=== PATIENT | female | born 1970 | race Caucasian/White ===

== ENCOUNTER 2025-05-09 06:42 | Inpatient (IN) ==
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
[2025-05-09] MEDS ORDERED: DEXAMETHASONE SOD INJ 4 MG/ML VIAL ONE (06:54)
[2025-05-09] MEDS ORDERED: ONDANSETRON INJ 2 MG/ML 2 ML VIAL ONE (06:54)
[2025-05-09] MEDS ORDERED: MIDAZOLAM HCL 1 MG/ML 2ML VIAL ONE (06:55)
[2025-05-09] MEDS ORDERED: LIDOCAINE 2% 2 ML VIAL/AMP(20MG/ML) INFIL ONE (07:00)
[2025-05-09] MEDS ORDERED: ROCURONIUM BROMIDE 10 MG/ML 5 ML VIAL IV ONE (07:00)
[2025-05-09] MEDS ORDERED: HEPARIN SOD (PORCINE) 1000 UNIT/ML ONE (07:04)
[2025-05-09] MEDS ORDERED: GLYCOPYRROLATE 0.2 MG/ML VIAL ONE ×2 (07:19→08:33)
--- NOTE | 2025-05-09 07:25 | History & Physical Bridge Note ---
Date of Service May 09, 2025 History & Physical Bridge Note I have examined the patient, reviewed the History & Physical and in the interval since the performance of the History & Physical I have noted the following changes of clinical significance: no changes noted
[2025-05-09] MEDS: SODIUM CHLORIDE 0.9% 1,000 ML IV SCH ×2 (07:44→15:50)
[2025-05-09] MEDS ORDERED: PROMETHAZINE HCL 6.25 MG in SODIUM CHLORIDE 0.9% 50 ML IV PRN (07:55)
[2025-05-09] MEDS ORDERED: ATROPINE SULFATE 0.1 MG/ML 10ML SYR IV PRN (07:55)
[2025-05-09] MEDS ORDERED: PHENYLEPHRINE 100MCG/ML 5ML SYR ONE (08:57)
[2025-05-09] MEDS ORDERED: PROTAMINE SULFATE 10 MG/ML 5 ML VIAL IV ONE (09:37)
[2025-05-09] MEDS: THROMBIN FOR SOLN 20000 UNIT KIT ONE (09:40)
[2025-05-09] MEDS: GELATIN SPONGE SZ 100 ONE (09:40)
[2025-05-09] MEDS ORDERED: PHENYLEPHRINE HCL 25 MG/250 ML NSS IV ONE (09:40)
[2025-05-09] MEDS ORDERED: ePHEDrine sulfate 50 MG/5 ML SYR ONE (09:40)
[2025-05-09] MEDS: VISIPAQUE IV PRN (09:41)
[2025-05-09] MEDS ORDERED: SUGAMMADEX SODIUM 200 MG/2 ML VIAL IV ONE (09:58)
[2025-05-09] MEDS: BUPIVACAINE/EPINEPHRINE 0.5% MPF 1:200,000 30 ML VIAL ONE (10:01)
[2025-05-09] MEDS: ceFAZolin 330 MG/ML 1 GM VIAL ONE (10:01)
--- NOTE | 2025-05-09 10:01 | Post Operative Brief Note ---
Immediate Post Op Note Date of Surgery May 09, 2025 Pre & Post Diagnosis Operation Date: 05/09/25 08:00 Pre-Op Diagnosis: Left Internal Carotid Artery Stenosis Post-Op Diagnosis: Left Internal Carotid Artery Stenosis I identified the patient and participated in the time-out.: Yes Procedure Operation Date: 05/09/25 08:00 Actual Procedures p Left transcarotid artery revascularization, ultrasound right common femoral vein(Left) - Ridge Gaming MD Surgeon Ridge Gaming MD Warehouse Order Puller MD Bess SolanoMinarchick,PAC Estimated Blood Loss 20 Findings Consistent with Post-Op Diagnosis Anesthesia Type General Complications none Disposition Accompanied Patient To Recovery: No Disposition: Recovery Room
[2025-05-09] MEDS: ARISTA ABSORBABLE HEMOSTAT 3GM TOP ONE (10:03)
--- NOTE | 2025-05-09 10:18 | Operative Report ---
Post Operative Report Pre & Post Diagnosis Operation Date: 05/09/25 08:00 Pre-Op Diagnosis: Left Internal Carotid Artery Stenosis Post-Op Diagnosis: Left Internal Carotid Artery Stenosis I identified the patient and participated in the time-out.: Yes Procedure Operation Date: 05/09/25 08:00 Actual Procedures p Left transcarotid artery revascularization, ultrasound right common femoral vein(Left) - Ridge Gaming MD Surgeon Ridge Gaming MD Tool Lapper Hand Ada Jones MD; OSKAR Lassiter Estimated Blood Loss 25 Findings See Below Left internal carotid artery had a focal area of high grade stenosis on diagnostic angiogram, improved after balloon angioplasty and stent placement. On completion angiogram, there were no areas of dissection or flow limiting stenosis identified. There was good wall apposition of the stent. Patient moving all extremities to command after waking up from anesthesia. Specimens None Anesthesia Type General Complications None Disposition Accompanied Patient To Recovery: Yes Indications 54 year old female with history of bilateral asymptomatic high grade internal carotid artery stenosis, with left side being more significant than the right. Given that the left side had slightly more significant stenosis, we offered her revascularization of the left side first. After discussion of risks and benefits, patient provided informed consent to the above mentioned procedure. Description of Procedure The patient was brought to the operating room, where lines were placed and general anesthesia was accomplished by anesthesia team. A shoulder roll was placed and the neck was rotated towards the right side of the patient. The left neck and bilateral groins were prepped and patient was draped in the usual sterile fashion. A timeout was performed identifying the correct patient by name, procedure, and location of procedure and all were in agreement. A 4cm transverse incision was made between the sternal and clavicular heads of the sternocleidomastoid muscle. The muscle heads were retracted to each side and the carotid sheath was identified. Using blunt dissection, the carotid sheath was opened and 3cm of common carotid artery (CCA) were isolated. Umbilical tape was placed around the proximal CCA under direct visualization. A 5-0 prolene U- stitch was pre-placed in the anterior wall of the CCA to facilitate hemostasis after removal of the arterial sheath at completion of the procedure. The patient was given 9,000 units of IV heparin. The contralateral (right) common femoral vein was accessed under ultrasound guidance using a micropuncture needle, and a wire and sheath were placed using modified Seldinger technique. The venous return sheath was advanced into the common femoral vein over the 0.035" wire. Blood was aspirated from the flow line and the sheath was flushed with heparinized saline.The sheath was secured to the patient's skin with a 2-0 silk stitch to maintain position in the vessel. We then turned our attention back to the neck. ACT was confirmed to be above 250 seconds prior to arterial access. A 4-Ethiopian non-stiffened micropuncture set was used to puncture the artery with a 21G needle through the pre-placed U-stitch while holding gentle traction on the umbilical tape to stabilize the CCA within the incision. We did go through the skin as a tunnel before puncturing the artery with the needle, as the artery was about 5.5cm deep in the neck. The micropuncture wire was advanced 3-4cm into the CCA and the 21G needle removed. A skin lina was made over the needle puncture site at the skin. The micropuncture sheath was advanced through the skin lina until it was 3cm into the CCA and the wire and dilator were removed. A cerebral angiogram was obtained after ensuring there were no air bubbles in the system. The J-tipped guidewire was inserted and we stopped short of the lesion in the common carotid artery. After micropuncture sheath removal, the transcarotid arterial sheath foot plate was removed and the sheath was advanced to the 2.5cm marker. Then, the 0.035" wire and dilator were removed. Arterial sheath position was assessed under fluoroscopy. An angiogram was obtained to confirm position. The arterial sheath was sutured to the patient at two sites. The Flow Controller was connected to the transcarotid arterial sheath, prepared by passively allowing arterial blood to backfill the line and then it was connected to the venous return sheath. The CCA was clamped proximally with a Blanka tourniquet to ensure active flow reversal. Heparinized saline was delivered into the venous flow line to confirm adequate flow reversal. A left carotid angiogram was obtained. A TCAR timeout was performed, heart rate was >70bpm and systolic BP was >140mmHg. Patient had been pretreated with glycopyrrolate and atropine was available. The lesion was crossed with an 0.014" guidewire and pre-dilation balloon angioplasty was performed with a 4.5x25mm [employer] rapid exchange balloon to 12 atmospheres for about 3 seconds. An 8- 6x30mm tapered ENROUTE transcarotid stent was placed. After allowing at least 2 minutes of continued flow reversal, a completion angiogram was performed showing appropriate stent position with good wall apposition. At TCAR case completion, antegrade flow was restored by releasing the tourniquet on the CCA and closing the stopcocks to the flow lines. The total clamp time was 12 minutes. The transcarotid arterial sheath was removed and the pre-placed suture was tied. 25mg of protamine were given. There was bleeding around the pre-placed stitch and we placed a single 6-0 Prolene stitch around it. The site was now hemostatic. A repeat ACT was obtained and was <150. The venous return sheath was removed and hemostasis achieved with manual compression. The neck incision was irrigated with antibiotic solution and was hemostatic before closure. 30cc of 0.25% marcaine with epinephrine were used for local anesthesia around skin edges. The platysma was approximated with 3-0 Vicryl running suture and the skin was closed with 4-0 running Vicryl suture and covered with Dermabond. The patient tolerated the procedure well and was extubated in the operating room. She was moving all four extremities to command prior to transfer to the recovery room. All counts were correct at the end of the procedure. Fluoroscopy time was 2.4 minutes, radiation dose was 27 mGy and 12cc of contrast were used. Dr. Gaming was present and participated in all critical parts of the procedure. I attest to the content of the Intraoperative Record and any orders documented therein. Any exceptions are noted below.
[2025-05-09] MEDS: HYDROmorphone INJ 2 MG/ML SYR/VIAL IV PRN (10:42)
--- NOTE | 2025-05-09 12:14 | Anesthesiology Progress Note ---
Date of Service May 09, 2025 Anesthesia Post Procedure Vital Signs Vital Signs: Temp Pulse Pulse Resp BP BP BP 05/09/25 11:40 75 14 124/61 136/62 05/09/25 11:30 36.7 C 72 12 141/45 H 137/45 L 05/09/25 11:20 79 13 111/48 L 107/62 05/09/25 11:10 79 13 111/48 L 107/62 05/09/25 11:00 71 15 115/45 L 118/48 L 05/09/25 10:50 80 19 109/57 L 122/47 L 05/09/25 10:40 98 H 23 125/55 L 144/59 H 05/09/25 10:33 36.5 C 98 H 19 126/54 L 141/75 H 05/09/25 07:14 36.4 C L 70 18 134/57 L 139/68 Pulse Ox O2 Del Method O2 Flow Rate 05/09/25 11:40 93 Nasal Cannula 2 05/09/25 11:30 96 Nasal Cannula 2 05/09/25 11:20 92 Oxymask 5 05/09/25 11:10 92 Oxymask 5 05/09/25 11:00 97 Oxymask 5 05/09/25 10:50 94 Oxymask 5 05/09/25 10:40 93 Oxymask 5 05/09/25 10:33 95 Oxymask 5 05/09/25 07:14 96 Room Air Pain Intensity Bilateral Leg: Pain Intensity: 2 Left Neck: Pain Intensity: 5 Left Leg: Pain Intensity: 9 Transfer of Care Handoff Completed per policy Notes Mental Status: alert / awake / arousable and participated in evaluation Nausea / Vomiting: adequately controlled Pain: adequately controlled Airway Patency, RR, SpO2: stable & adequate BP & HR: stable & adequate Hydration State: stable & adequate Anesthetic Complications: no major complications apparent and Pt Satisfied with anesthetic care
[2025-05-09] MEDS ORDERED: ALBUTEROL HFA 8 GM INHALER INH PRN (13:18)
[2025-05-09] MEDS ORDERED: VITAMIN B COMPLEX FOLIC ACID PO SCH (13:18)
[2025-05-09] MEDS ORDERED: FLUTICASONE PROPIONATE NA SPR 16 GM BTL PRN (13:18)
[2025-05-09] MEDS ORDERED: STAT IV Infusion **Titration per Protocol STA (13:18)
[2025-05-09] MEDS ORDERED: PHARMACY GLYCEMIC MGMT CONSULT PRN (13:18)
[2025-05-09] MEDS ORDERED: PHENYLEPHRINE/NSS 25 MG/250 ML BAG IV PRN (13:18)
[2025-05-09] MEDS ORDERED: NON-FORMULARY MEDICATION (Magnesium Glycinate 100 mg Tablet) PO SCH (13:18)
[2025-05-09] MEDS ORDERED: diphenhydrAMINE Capsule 25 MG CAP PO PRN (13:18)
[2025-05-09] MEDS ORDERED: NAPHAZOLIN/PHENIRAMIN OPH SOLN 15 ML BTL OP PRN (13:56)
[2025-05-09] MEDS ORDERED: BISMUTH SUBSALICYLATE 262 MG CHEW PO PRN (14:04)
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
--- NOTE | 2025-05-09 14:50 | Pharmacy Report ---
Pharmacy Glycemic Short Note 2 - Date of Service May 09, 2025 - Glycemic Short BSG Results (Last 24 hours): 05/09/25 05/09/25 05/09/25 06:59 10:35 12:44 POC Glucose 117 H 154 H 164 H OUTPATIENT ANTIDIABETIC REGIMEN: * Farxiga 10 mg daily, Dulatglutide, Metformin ER 1000 mg BID * A1c 6.1% 12/13/24 * New A1c ordered for tomorrow ASSESSMENT: * Patient admitted following left TCAR. BSGs 117-154-164 mg/dL. * Will give full weight stress 1 dose lantus x 1 now, additional dose up to 15 units tonight (stress 2) * Will begin Novolog with weight stress 2 parameters PLAN FOR INPATIENT GLYCEMIC CONTROL: * Hold outpatient oral diabetes medications * Basal insulin * Lantus 15 units SQ x1, 0-8-15 PM * Bolus insulin * NovoLog per scale ACHS or Q6hrs while NPO * Goal Range: Low 110 mg/dL - High 140 mg/dL * Correction Factor: 30 mg/dL/unit * Nutritional / Prandial insulin per carb ratio of 1 unit per 9 grams CHO consumed
[2025-05-09] MEDS: LANTUS PER UNIT CHARGE SC ONE ×2 (15:51→20:10)
[2025-05-09] MEDS: MAGNESIUM OXIDE 400 MG TAB PO SCH (15:51)
[2025-05-09] MEDS: PREGABALIN 150 MG CAP PO STA (15:51)
[2025-05-09] MEDS: ASCORBIC ACID 500 MG TAB PO SCH (15:54)
[2025-05-09] MEDS: THIAMINE HCL 100 MG TAB PO SCH (15:54)
[2025-05-09] MEDS: FERROUS SULFATE 325 MG TAB PO SCH (15:55)
[2025-05-09] MEDS: INSULIN ASPART PER UNIT CHARGE SC SCH (17:11)
[2025-05-09] MEDS: NICOTINE 21 MG/24 HR TDSY TD SCH (18:09)
[2025-05-09] MEDS: guaiFENesin 600 MG TABCR PO SCH (20:10)
[2025-05-09] MEDS: FAMOTIDINE 40 MG TABLET PO SCH (20:10)
[2025-05-09] MEDS: LURASIDONE HCL 20 MG TAB PO SCH (20:11)
[2025-05-09] MEDS: TICAGRELOR 90 MG TAB PO SCH (20:11)
[2025-05-09] MEDS: PRAZOSIN HCL 1 MG CAP PO SCH (20:11)
[2025-05-09] MEDS: lamoTRIgine 100 MG TAB PO SCH (20:11)
[2025-05-09] MEDS: SUCRALFATE 1 GM TAB PO SCH (20:11)
[2025-05-09] MEDS: PREGABALIN 150 MG CAP PO SCH (20:11)
[2025-05-09] MEDS ORDERED: MORINGA PO SCH (21:00)
--- NOTE | 2025-05-10 07:20 | Critical Care Progress Note ---
Date of Service May 10, 2025 Assessment & Plan (1) Obstructive sleep apnea: (2) Chronic bronchitis: (3) Tobacco abuse: (4) Stenosis of left internal carotid artery: (5) Neuropathy: (6) Lumbar radiculopathy: (7) PAD (peripheral artery disease): (8) Atrial fibrillation: (9) GERD (gastroesophageal reflux disease): (10) PTSD (post-traumatic stress disorder): (11) Diabetes mellitus, type 2: (12) Hypertension: Plan 54-year-old female admitted to the hospital for TCAR. Sent to ICU for further management Past medical history: Chronic sinusitis, RICKY, history of anal cancer s/p resection, no chemo or radiation, PTSD, anxiety, hypertension, diabetes, dyslipidemia, peripheral vascular disease 2D echo 04/13/2025: EF 55-60%, RV normal in size and function -- Carotid artery stenosis left side S/p left-sided TCAR on 05/09/[address] Gaming Monitor blood pressure Neurochecks as per protocol Monitor for any signs of bleeding Continue with Lipitor and Brilinta -- COPD with emphysema and bronchitis On Trelegy 200 at home Not in exacerbation Follows up with Dr. Saini PFT 08/22/2024 personally reviewed: No obstructive lung dysfunction, insignificant bronchodilator response, high-normal TLC, mild decrease in DLCO FVC 3.42 L 111%, FEV1 2.46 L 103%,-/FVC 72%, RV 125%, TLC 120%, RV/TLC 95%, DLCO 72% --History of peripheral vascular disease S/p multiple stents in the left leg --History of DVT On Xarelto -- RICKY On CPAP 12 cm H2O Continue with same in the hospital --GERD On Pepcid and pantoprazole --Lumbar radiculopathy with neuropathy Takes Lyrica on a regular basis at home -- Diabetes type 2 ICU hypoglycemia protocol --Prophylaxis VTE: Xarelto GI: Pepcid and pantoprazole Lines: Right radial, peripheral Diet: Cardiac Plan: In/out: -960, urine output 3210 No labs from today DC the arterial line Disposition as per vascular surgery Please note the above document was generated using voice recognition software. It may contain grammatical, syntax or spelling errors.Any formal questions or concerns about the content, text or information contained within the body of this dictation should be directly addressed to the provider for clarification. Admission and Anticipated Discharge Date Admission Date: May 09, 2025 Subjective Patient seen and examined at bedside. No acute distress, no adverse events overnight She does have cough and complains of thick sticky phlegm. Not taking any medications at home for it Systolic blood pressure was in the 140s heart rate in the low 60s at the time of examination Denies any dizziness, no lightheadedness Mild soreness still in the back of the throat. Was able to finish her breakfast without any issues No nausea or vomiting Review of Systems Review of Systems: All systems reviewed & are unremarkable except as noted in Subjective Physical Exam Physical Exam: Constitutional: No acute distress HEENT: EOMI, PERRLA, left-sided incision site clean with minimal surrounding hematoma Respiratory system: Decreased air entry bilaterally, no wheeze, no rhonchi, no crackles CVS: S1-S2 positive, no murmurs or gallops Abdomen: Soft, nontender, nondistended, positive bowel sounds x4 Extremities: +2 pulses bilaterally radialis/ dorsalis pedis, no cyanosis, no edema Neuro: Awake alert oriented x3, cranial nerves II to XII grossly intact Psych: Normal mood and affect G/U: No Sharma Skin: Right groin dressing clean Skin: no rashes, warm and dry Lymphatic: no cervical or axillary lymphadenopathy Results & Data Results & Data Vital Signs (Past 12 Hours) Vital Signs Temp Pulse Resp BP Pulse Ox FiO2 05/10/25 06:00 36.6 C 05/10/25 06:00 57 L 15 123/52 L 98 05/10/25 05:15 58 L 17 93 05/10/25 05:01 135/45 L 05/10/25 05:00 36.7 C 05/10/25 04:00 36.6 C 05/10/25 04:00 53 L 15 96 05/10/25 04:00 126/50 L 05/10/25 03:00 36.5 C 05/10/25 03:00 52 L 14 96 05/10/25 03:00 109/44 L 05/10/25 02:14 53 L 17 93 21 05/10/25 02:03 56 L 14 95 05/10/25 02:00 36.7 C 05/10/25 02:00 103/45 L 05/10/25 01:03 54 L 16 95 05/10/25 01:00 36.6 C 05/10/25 01:00 124/49 L 05/10/25 00:00 36.7 C 05/10/25 00:00 115/44 L 05/10/25 00:00 54 L 15 95 05/10/25 00:00 55 L 05/09/25 23:18 62 17 96 05/09/25 23:14 83 20 93 21 05/09/25 23:00 36.6 C 05/09/25 23:00 118/44 L 05/09/25 22:15 53 L 14 127/56 L 98 05/09/25 22:00 36.7 C 05/09/25 21:09 60 17 96 05/09/25 21:01 116/47 L 05/09/25 21:00 36.5 C 05/09/25 20:03 67 23 151/48 H 92 05/09/25 20:00 36.7 C Coding Level of Care Code 77069 SUB INP/OBS CARE MIN Diagnoses Obstructive sleep apnea G47.33 Chronic bronchitis J42 Tobacco abuse Z72.0 Stenosis of left internal carotid artery I65.22 Neuropathy G62.9 Lumbar radiculopathy M54.16 PAD (peripheral artery disease) I73.9 Atrial fibrillation I48.91 GERD (gastroesophageal reflux disease) K21.9 PTSD (post-traumatic stress disorder) F43.10 Diabetes mellitus, type 2 E11.9 Hypertension I10
[2025-05-10 07:40] LABS: Hemoglobin A1C 6.2 % (4.5-5.6)
[2025-05-10] MEDS: ASPIRIN 81 MG ECTAB PO SCH (08:11)
[2025-05-10] MEDS: CHOLECALCIFEROL 125 MCG (5,000 UNITS) TAB PO SCH (08:11)
[2025-05-10] MEDS: ATORVASTATIN 40 MG TAB PO SCH (08:11)
[2025-05-10] MEDS: OMEGA-3 (PURIFIED FISH OIL) 1 GM CAP PO SCH (08:12)
[2025-05-10] MEDS: FOLIC ACID 1 MG TAB PO SCH (08:13)
[2025-05-10] MEDS: SPIRONOLACTONE 25 MG TAB PO SCH (08:13)
[2025-05-10] MEDS: MULTIVITAMIN TAB PO SCH (08:13)
[2025-05-10] MEDS: UMECLIDINIUM/VILANTEROL 62.5/25MCG 7 PUFFS/INHALER INH SCH (08:15)
[2025-05-10] MEDS: FLUTICASONE FUROATE 200MCG 14 PUFFS/INHALER INH SCH (08:16)
[2025-05-10] MEDS: REMOVE NICODERM PATCH SCH (08:21)
[2025-05-10] MEDS: LANTUS PER UNIT CHARGE SC ONE (08:40)
[2025-05-10] MEDS ORDERED: BIOTIN KERATIN PO SCH (09:00)
[2025-05-10] MEDS ORDERED: VITAMIN E PO SCH (09:00)
[2025-05-10] MEDS ORDERED: GINSENG 500 MG PO SCH (09:00)
[2025-05-10] MEDS ORDERED: NON-FORMULARY MEDICATION (Lutein 1 CAP) PO SCH (09:00)
[2025-05-10] MEDS ORDERED: NON-FORMULARY MEDICATION (Fluticasone-Umeclidin-Vilanter [Trelegy Ellipta] 200-62.5-25 mcg INH SCH (09:00)
[2025-05-10] MEDS ORDERED: [UNRECOGNIZED DRUG - OTHER] PO SCH (09:00)
[2025-05-10] MEDS ORDERED: GLUTAMINE 500 MG PO SCH (09:00)
[2025-05-10] MEDS ORDERED: ACTIVATED CHARCOAL PO SCH (09:00)
[2025-05-10 09:55] VITALS: O2SAT 95
[2025-05-10 11:43] VITALS: RESP 18
[2025-05-10 11:44] VITALS: TEMP 98.2
--- NOTE | 2025-05-10 13:28 | Surgery Progress Note ---
Date of Service May 10, 2025 Assessment & Plan (1) Stenosis of left internal carotid artery: Plan: Doing well Will get her out of bed and if she can void, she can be d\c'd today Admission and Anticipated Discharge Date Admission Date: May 09, 2025 Subjective Patient has not been out of bed. She denies any focal deficits. Does have mild incisional discomfort. She has not voided since ragland removed. Physical Exam Constitutional: WD/WN, vitals as above Neck: trachea midline Respiratory: normal respiratory effort; no respiratory distress Cardiovascular: Rate/Rhythm: regular rate and regular rhythm Skin: + incision Neurologic: CN's II-XI intact bilaterally, normal sensation to monofilament and moves all extremities Psychiatric: A+Ox3, euthymic affect Results & Data Vital Signs (Past 12 Hours) Vital Signs Temp Pulse Resp BP Pulse Ox O2 Del Method FiO2 05/10/25 11:43 36.8 C Room Air 05/10/25 11:06 71 18 95 05/10/25 11:00 129/48 L 05/10/25 11:00 129/48 L 05/10/25 10:24 63 16 96 05/10/25 10:06 74 17 96 05/10/25 10:00 126/44 L 05/10/25 09:54 69 16 95 05/10/25 09:03 58 L 19 95 05/10/25 09:00 125/47 L 05/10/25 09:00 125/47 L 05/10/25 08:53 36.4 C L 05/10/25 08:51 66 23 96 05/10/25 08:00 62 23 93 05/10/25 08:00 119/48 L 05/10/25 08:00 119/48 L 05/10/25 08:00 119/48 L 05/10/25 08:00 119/48 L 94 05/10/25 08:00 Room Air 05/10/25 08:00 59 L 05/10/25 07:00 59 L 15 93 05/10/25 07:00 122/54 L 05/10/25 06:00 36.6 C 05/10/25 06:00 57 L 15 123/52 L 98 05/10/25 05:15 58 L 17 93 05/10/25 05:01 135/45 L 08/07/25 05:00 36.7 C 05/10/25 04:00 36.6 C 05/10/25 04:00 53 L 15 96 05/10/25 04:00 126/50 L 05/10/25 03:00 36.5 C 05/10/25 03:00 52 L 14 96 05/10/25 03:00 109/44 L 05/10/25 02:14 53 L 17 93 21 05/10/25 02:03 56 L 14 95 05/10/25 02:00 36.7 C 05/10/25 02:00 103/45 L
--- NOTE | 2025-05-10 13:34 | Discharge Summary ---
Date of Service May 10, 2025 Admission HPI Per Admitting Provider Ms. Nunez is a middle-aged female presents to the vascular surgery clinic as a new patient in consultation for carotid disease. Patient is a very poor historian, and has severe flight of ideas which limits our ability to obtain an accurate HPI. Patient denies amaurosis, unilateral extremity weakness numbness or tingling, difficulty speaking or swallowing, facial droop, sudden onset of confusion. She does state that she was told she had a stroke in the past, but is unsure when this occurred. 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 She does have significant neuropathy in all 4 extremities, and has some tingling in her extremities most the time. She denies headache presently, fever recently, chest pain, shortness of breath at rest, abdominal pain, nausea, vomiting, rest pain, claudication, nonhealing wounds or ulcers, other complaints. She does have a history of undergoing stenting in her lower extremity arteries by Dr. Ayala in the past, bu t denies any new problems related to that presently. Admission Exam Per Admitting Provider Constitutional: In general patient is a healthy-appearing well-nourished well developed middle-aged female in no distress. She appears older than stated age. She is alert and oriented x 3 without any focal deficits. Her head is no rmocephalic and atraumatic. Her carotids do not demonstrate a bruit. Her heart is irregular. Her lungs are decreased significantly with sparse expiratory wheezing but clear otherwise. Her abdomen is soft nontender with normoactive bowel sounds in 4 r quadrants. Brachial and radial pulses are +2 in the left 3 on the right. Femoral pulses are +2 in the right +3 in the left. Distal pulses are +1. She has brisk capillary fill and no sign of distal ischemia. She has trace to 1+ edema. Principal Diagnosis left internal carotid artery stenosis Discharge Exam Constitutional: In general patient is a healthy-appearing well-nourished well developed middle-aged female in no distress. She appears older than stated age. She is alert and oriented x 3 without any focal deficits. Her head is normocephalic and atraumatic. Her carotids do not demonstrate a bruit. Her heart is irregular. Her lungs are decreased significantly with sparse expiratory wheezing but clear otherwise. Her abdomen is soft nontender with normoactive bowel sounds in 4 r quadrants. Brachial and radial pulses are +2 in the left 3 on the right. Femoral pulses are +2 in the right +3 in the left. Distal pulses are +1. She has brisk capillary fill and no sign of distal ischemia. She has trace to 1+ edema. Constitutional WD/WN, vitals as above Neck trachea midline Respiratory normal respiratory effort; no respiratory distress Cardiovascular Rate/Rhythm: regular rate and regular rhythm Skin + incision Neurologic CN's II-XI intact bilaterally, normal sensation to monofilament and moves all extremities Psychiatric A+Ox3, euthymic affect Discharge Data Allergies Allergy/AdvReac Type Severity Reaction Status Date / Time fluconazole [From Diflucan] Allergy Severe Anaphylaxis Verified 05/09/25 07:01 aripiprazole [From Abilify] AdvReac Intermediate Hyperglycem Verified 05/09/25 07:01 ia codeine AdvReac Intermediate "It made Verified 05/09/25 07:01 me feel weird" lithium AdvReac Intermediate Kidney Verified 05/09/25 07:01 Problems tramadol AdvReac Intermediate Vomiting Verified 05/09/25 07:01 trazodone AdvReac Intermediate Restless Verified 05/09/25 07:01 legs ziprasidone [From Geodon] AdvReac Intermediate Hypertensio Verified 05/09/25 07:01 n rosuvastatin [From Crestor] AdvReac Unknown Unknown Verified 05/09/25 07:01 Consultations 05/09/25 13:18 Consult Wine Bottle Inspector Routine Procedures Performed Operation Date: 05/09/25 08:00 Actual Procedures p Left transcarotid artery revascularization, ultrasound right common femoral vein(Left) - Ridge Gaming MD Ordered Studies 05/09/25 07:13 EV angio carotid cerv LT Routine US EV guide vascular access Routine Hospital Course (1) Stenosis of left internal carotid artery: Doing well Will get her out of bed and if she can void, she can be d\\c'd today Total Time Total Time Spent Total Time Spent (In Minutes): x Discharge Plan Discharge Items Patient Disposition: Home - Self-Care Reason For Visit: Left Internal Carotid Artery Stenosis Discharge Diagnosis: Left internal carotid artery stenosis Activity: Per Instructions section Non-emergency contact: Surgeon Call non-emergency contact if: your temperature is above 101.5, your wound has increased redness, your wound has increased drainage and your wound pain has increased Follow-up/Referrals: Maci Arias PA-C [Primary Care Provider] - Diet: Carb Consistent or DM2 and Heart Healthy Addtl Attending Provider Instructions: SPECIAL CARE INSTRUCTIONS: Diet: * You may return to previous diet. Medications: * Continue to take Aspirin, brilinta and statin as directed. Incision Care: * You may shower, but do not rub incision. You may let the warm soapy water run over it. Be sure to dry the incision well after bathing. * Do not shave directly over the incision until it is healed. * DO NOT IMMERSE THE INCISION IN A TUB/POOL/etc. UNTIL HEALED. Restrictions: * Do not drive for at least one week or if you are still taking any narcotic pain medication. * Do not lift anything heavier than a gallon of milk for one week after going home. Possible Complications: * Numbness - It is normal to have some numbness around the incision. Numbness can extend beyond the incision to areas of the neck, ear and face. The numbness is due to bruising of nerves during the surgery and will gradually improve over a period of months. * Hoarseness/Difficulty Speaking and Swallowing - The bruising of nerves in the neck can also cause a hoarse voice, difficulty speaking or swallowing. This may improve over time, HOWEVER, if it continues for more than a few days please contact our office ([phone]). * Excessive Swelling - There will be some swelling immediately after surgery which usually resolves within one week. If you notice that the swelling is getting worse, notify your surgeon ([phone]). * Drainage/Bleeding - If there is any drainage or bleeding, it should be a very small amount (less than a teaspoon per day). If you have excessive bleeding or drainage from the incision, call your surgeon ([phone]) right away. ACTIVATION OF EMERGENCY MEDICAL SYSTEM: Call 911, immediately, if you experience any of the following: Warning Signs and Symptoms of Stroke: * Sudden numbness or weakness of the face, arm or leg, especially on one side of the body * Sudden confusion, trouble speaking or understanding * Sudden trouble seeing in one or both eyes * Sudden trouble walking, dizziness, loss of balance or coordination * Sudden severe headache with no cause Do not delay calling 911 if you experience any warning signs or symptoms of a stroke. Delay in seeking medical attention may affect what treatments can be given to you. Risk Factors for Stroke: You can reduce your chances of stroke by working with your medical provider to adopt a healthy lifestyle. Some specific ways to lower your chance of stroke are: * If you are a smoker, now is the time to stop smoking cigarettes * If you are diabetic, improve the control of your blood sugars * Avoid excessive amounts of alcohol * Control high blood pressure * Lose weight if you are overweight * Be sure to lead an active lifestyle * Eat a healthy diet low in salt, cholesterol and fat You should know about other risk factors for stroke that you are unable to control. These include: * Age 55 years or older * Male gender * Certain racial groups: , or / * Family History of Stroke, Mini stroke or Heart Attack * Sickle Cell Disease You will be receiving a call from the Vascular Surgery Nurse after you are discharged. FOLLOW UP VISIT: It is important for you to keep your follow up appointments with your medical provider. Keep any scheduled doctor appointments. Call [phone] to schedule a follow up appointment if one not already scheduled. Pending Studies at Discharge: No Stand-Alone Forms: [facility], Smoking Cessation Medications and DC Order Prescriptions: New oxycodone-acetaminophen [Percocet] 5-325 mg tablet 1 tab PO Q8H PRN (Reason: pain) Qty: 10 0RF Continued metformin 500 mg tablet extended release 24 hr 1,000 mg PO BID Qty: 120 5RF (DME) lancets [OneTouch Delica Lancets] 33 gauge misc See Dose Instructions .ROUTE .MEDSUPPLY Qty: 100 Rx Instructions: As directed (DME) OneTouch Ultra Blue Test Strip strip See Dose Instructions .ROUTE .MEDSUPPLY Qty: 10 Rx Instructions: Test blood sugars 3 times a day Farxiga 10 mg tablet 10 mg PO QAM Trelegy Ellipta 200-62.5-25 mcg blister with device 1 inh inhalation QAM prazosin 2 mg capsule 2 mg PO HS atorvastatin 40 mg tablet 40 mg PO QAM Opcon-A 0.30390-1.315 % drops 1 drp ophthalmic (eye) QID PRN (Reason: Dry Eye(S)) (DME) blood-glucose meter [OneTouch Verio Flex meter] Misc See Rx Instructions .Route Qty: 1 0RF Rx Instructions: Check blood glucose 3x daily (DME) OneTouch Verio test strips Strip See Rx Instructions .Route Qty: 100 11RF Rx Instructions: Check blood glucose 3x daily (DME) lancets [Comfort EZ Lancets] 28 gauge misc See Rx Instructions .Route Qty: 100 11RF Rx Instructions: check blood glucose 3x daily Trulicity 1.5 mg/0.5 mL pen injector 1.5 mg subcut Q7D Qty: 2 5RF Patient Comments: no regular day, it's whenever she remembers to take it L-Glutamine 500 mg capsule 500 mg PO DAILY multivitamin [Daily Multi-Vitamin] Tablet 1 tab PO DAILY lysine [L-Lysine] 500 mg tablet 500 mg PO DAILY zinc gluconate 50 mg tablet 50 mg PO DAILY coenzyme Q10 100 mg capsule 100 mg PO DAILY krill [id number] 150-450 mg capsule,delayed release(DR/EC) 1 cap PO DAILY ferrous sulfate 325 mg (65 mg iron) tablet 325 mg PO DIRECTED Rx Instructions: every other day sucralfate [Carafate] 1 gram tablet 1 g PO BID magnesium 250 mg tablet 400 mg PO DIRECTED Rx Instructions: every 3 days vitamin B complex-folic acid 400 mcg tablet extended release 1 tab PO DIRECTED Rx Instructions: every 3 days thiamine HCl (vitamin B1) 250 mg tablet 250 mg PO DIRECTED Rx Instructions: every 3 days lisinopril 10 mg tablet 10 mg PO QAM bismuth subsalicylate [Pepto-Bismol] 1 applic PO DAILY PRN (Reason: Upset Stomach) cholecalciferol (vitamin D3) [Vitamin D3] 125 mcg (5,000 unit) Tablet 125 mcg PO DAILY albuterol sulfate [Ventolin HFA] 90 mcg/actuation Hfa Aerosol Inhaler 2 puff INHALATION Q6H PRN (Reason: Shortness Of Breath) magnesium glycinate 100 mg Tablet 240 mg PO DIRECTED Rx Instructions: every 3 days Biotin Plus Keratin 10,000-100 mcg-mg Tablet 1 tab PO DAILY activated charcoal 525 mg PO DAILY folic acid 1 cap PO DAILY Vitamin C 2,000 mg Tablet Extended Release 2,000 mg PO DIRECTED Rx Instructions: every other day ginseng 500 mg Tablet 500 mg PO DAILY famotidine 40 mg Tablet 40 mg PO HS pantoprazole 20 mg Tablet,Delayed Release (Dr/Ec) 20 mg PO QAM lurasidone [Latuda] 40 mg Tablet 40 mg PO HS Rx Instructions: must administer with food (at least 350 calories) [place] 2 tab PO BID lutein 1 cap PO DAILY vitamin E 1 cap PO DAILY aspirin 81 mg tablet,delayed release (DR/EC) 81 mg PO QAM spironolactone 25 mg tablet 25 mg PO QAM Xarelto 20 mg tablet 20 mg PO HS Rx Instructions: must administer with evening meal diphenhydramine HCl [Benadryl] 25 mg Capsule 25 mg PO TID PRN (Reason: allergies and/or sleep) ticagrelor [Brilinta] 90 mg Tablet 90 mg PO BID lamotrigine [Lamictal] 200 mg tablet 200 mg PO BID fluticasone propionate [Flonase Allergy Relief] 50 mcg/actuation spray,suspension 1 spray intranasal BID PRN (Reason: allergies) Rx Instructions: administer into each nostril pregabalin [Lyrica] 150 mg capsule 150 mg PO BID Discharge Orders: Discharge Order (Routine); Ordered 05/10/25 Ordered By: Ridge Gaming Admission Data Admit Date/Time: 05/09/25 07:28 Attending Provider: Ridge Gaming Admit Provider: Ridge Gaming Primary Care Provider: Maci Arias Other Providers: Edd Segundo; Rafael Saini; Donte Martines; Fidel Hernandez ueet; Bobby Colon; Gemini Mcknight; Cedric Salazar; Aydee Vieyra
[2025-05-10] MEDS: TAMSULOSIN HCL 0.4 MG CAP PO ONE (14:11)
[2025-05-10] MEDS ORDERED: GLUCAGON FOR INJ 1 MG VIAL SQ PRN (15:00)
[2025-05-10] MEDS ORDERED: DEXTROSE 50% 50 ML SYRINGE IV PRN (15:00)
[2025-05-10] MEDS ORDERED: GLUCOSE 10 TAB/TUBE PO PRN (15:00)
[2025-05-10] MEDS ORDERED: GLUCOSE 40% GEL 15 GM TUBE PO PRN (15:00)
[2025-05-10] MEDS ORDERED: CARBOHYDRATES FOR HYPOGLYCEMIA PO PRN (15:00)
[2025-05-10 15:56] VITALS: BP 109/41; PULSE 66
[2025-05-10] MEDS ORDERED: RIVAROXABAN 20 MG TAB PO SCH (21:00)
[2025-05-11] MEDS ORDERED: TAMSULOSIN HCL 0.4 MG CAP PO SCH (09:00)
== END 2025-05-10 16:45 | disposition home or self-care (01) | DRG 36 ==
LOC: ASU 06:42 → 1E 07:28
PROC: EV.TCAR (2025-05-09 08:00)

== ENCOUNTER 2025-07-25 06:19 | Inpatient (IN) ==
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
[2025-07-25 06:45] LABS: Hematocrit (blood only) 33.8 % (37.0-47.0); Hemoglobin 10.7 g/dl (12.0-16.0); Immature Granulocytes # (auto) 0.03 K/uL (0.01-0.20); Immature Granulocytes % (auto) 0.5 %; Mean Corpuscular Hemoglobin 26.8 pg (25.0-34.0); Mean Corpuscular Volume 84.5 fL (80.0-100.0); Platelet Count 229 K/uL (130-400); RDW Standard Deviation 42.1 fL (36.4-46.3); Red Blood Count 4.00 M/uL (4.20-5.40); White Blood Count 6.44 K/ul (4.8-10.8)
[2025-07-25] MEDS ORDERED: NALOXONE HCL 0.4 MG/1 ML VIAL/CARP IV PRN (07:01)
[2025-07-25] MEDS ORDERED: PROMETHAZINE HCL 6.25 MG in SODIUM CHLORIDE 0.9% 50 ML IV PRN (07:01)
[2025-07-25] MEDS ORDERED: ONDANSETRON INJ 2 MG/ML 2 ML VIAL IV PRN ×2 (07:01→11:14)
[2025-07-25] MEDS ORDERED: ATROPINE SULFATE 0.1 MG/ML 10ML SYR IV PRN (07:01)
[2025-07-25] MEDS ORDERED: FLUMAZENIL 0.1 MG/1 ML 10 ML VIAL IV PRN (07:01)
[2025-07-25 07:04] LABS: Anion Gap 6.0 (3-11); Blood Urea Nitrogen 20.0 mg/dl (6-23); Calcium 10.2 mg/dl (8.6-10.3); Carbon Dioxide 28.0 mmol/L (21-32); Chloride 105.0 mmol/L (98-107); Creatinine Clr Calc Pharmacy 53.0 ml/min; Glucose 165.0 mg/dl (70-99(Fasting)); Potassium 4.8 mmol/L (3.5-5.1); Sodium 139.0 mmol/L (136-145)
[2025-07-25] MEDS: SODIUM CHLORIDE 0.9% 1,000 ML IV SCH ×2 (07:04→12:19)
[2025-07-25 07:12] LABS: INR 1.0 (0.9-1.1); Partial Thromboplastin Time 25 Seconds (21-31); Prothrombin Time 10.3 Seconds (9.0-12.0)
[2025-07-25] MEDS ORDERED: PROPOFOL IV EMULSION 10 MG/ML 20 ML VIAL IV ONE (07:14)
[2025-07-25] MEDS ORDERED: ETOMIDATE 2 MG/ML 20 ML VIAL IV ONE (07:15)
[2025-07-25] MEDS ORDERED: GLYCOPYRROLATE 0.2 MG/ML VIAL ONE ×2 (07:19)
[2025-07-25] MEDS ORDERED: CISATRACURIUM BESYLATE IV SOLN 2 MG/ML 10 ML VIAL IV ONE (07:20)
[2025-07-25] MEDS ORDERED: NEOSTIGMINE METHYLSULFATE 1 MG/ML 10ML VIAL ONE (07:20)
[2025-07-25] MEDS ORDERED: MIDAZOLAM HCL 1 MG/ML 2ML VIAL ONE (07:22)
[2025-07-25] MEDS ORDERED: PHENYLEPHRINE HCL 10 MG/ML VIAL ONE (07:28)
[2025-07-25] MEDS: ALBUTEROL 0.083% NEBU SOLN 3 ML VIAL NEB STA (07:31)
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
[2025-07-25] MEDS ORDERED: NITROGLYCERIN/D5W 100 MCG/ML BTL ONE ×2 (07:44→09:19)
[2025-07-25] MEDS ORDERED: HEPARIN SOD (PORCINE) 1000 UNIT/ML ONE (07:48)
--- NOTE | 2025-07-25 08:22 | XRay Report ---
EXAM: XR chest 2V PA/lateral CLINICAL HISTORY: Pre op. TECHNIQUE: X-ray images of the chest were obtained in posteroanterior (PA) and lateral projections. COMPARISON: 10/09/2022 was reviewed. FINDINGS: Pulmonary Parenchyma: The lungs are clear bilaterally. There is no evidence of consolidation, collapse, or focal opacities. No pulmonary nodules are identified. There is no evidence of pleural effusion or pleural thickening. Heart and Mediastinum: The heart size and shape are normal. There is no mediastinal widening or masses. No hilar or mediastinal lymphadenopathy is identified. Bony Thorax: The bony thorax appears intact, without fractures or deformities. Soft Tissues: The soft tissues overlying the chest wall are unremarkable. IMPRESSION: Normal chest X-ray. No acute cardiopulmonary abnormalities are identified. Electronically signed by Smooth Hernandez 07-25-2025 08:21 AM
[2025-07-25] MEDS ORDERED: VASOPRESSIN 20 UNIT/ML VIAL ONE (08:48)
[2025-07-25] MEDS ORDERED: ePHEDrine sulfate 50 MG/5 ML SYR ONE (08:54)
[2025-07-25] MEDS ORDERED: PHENYLEPHRINE 100MCG/ML 5ML SYR ONE (08:54)
[2025-07-25] MEDS ORDERED: PROTAMINE SULFATE 10 MG/ML 5 ML VIAL IV ONE (09:11)
[2025-07-25] MEDS: GELATIN SPONGE SZ 100 ONE (09:27)
[2025-07-25] MEDS: BUPIVACAINE/EPINEPHRINE 0.5% MPF 1:200,000 30 ML VIAL ONE (09:27)
[2025-07-25] MEDS: ceFAZolin 330 MG/ML 1 GM VIAL ONE (09:27)
[2025-07-25] MEDS: THROMBIN FOR SOLN 20000 UNIT KIT ONE (09:28)
[2025-07-25] MEDS: SURGICEL ABSORB HEMOSTAT 2IN X 14IN TOP ONE (09:28)
--- NOTE | 2025-07-25 09:32 | Procedure Note ---
Angiogram Post Procedure Fluoroscopy Time (minutes): 3.9 Radiation (mGy): 87 Contrast: 24 Post Operative Report Pre & Post Diagnosis Operation Date: 07/25/25 08:00 Pre-Op Diagnosis: Right Internal Carotid Artery Stenosis Post-Op Diagnosis: Right Internal Carotid Artery Stenosis I identified the patient and participated in the time-out.: Yes Procedure Operation Date: 07/25/25 08:00 Actual Procedures p Right Transcarotid Artery Revascularization, Ultrasound Left Common Femoral Vein(Right) - Ridge Gaming MD Surgeon Ridge Gaming MD Back Strip Machine Operator Ruma,PAC Estimated Blood Loss 10 Findings Consistent with Post-Op Diagnosis Specimens none Anesthesia Type General Complications none Disposition Accompanied Patient To Recovery: No Disposition: Recovery Room Indications This 55-year-old female was found to have severe bilateral internal carotid stenosis. She underwent a left TCAR approximately 2 months prior to this follow-up difficulty. She is now admitted for a right TCAR. I have discussed the risks options and benefits of the procedure with the patient. The patient understands the risks options and benefits and agrees to the procedure. Description of Procedure The patient was taken to the operating room and placed in supine position. After general anesthesia was accomplished the groins and right side of the neck and chest were prepped and draped in a sterile manner. Timeout was performed and the patient was identified. A transverse incision was made just above the clavicle between the heads of the sternocleidomastoid. This was carried down to where the common carotid artery was identified. It was isolated and slung with an umbilical tape. It was given 8000units of heparin at that time. Ultrasound was then used to localize the left common femoral vein. The vein was patent and compressed easily. Under ultrasound guidance the right common femoral vein was punctured and the venous sheath was inserted. This was aspirated and flushed with heparinized saline. An ACT at that time was 341. Using micropuncture te chnique the common carotid artery was punctured using a tunneling technique. The micro sheath was inserted to 3 cm. Injection was then done showing the bifurcation. There was a significant lesion seen at the origin of the internal carotid artery on the right side. We reinserted the micro wire and passed it into the external carotid. We then advanced the dilator and sheath into the external carotid. The dilater and sheath were removed. We then inserted the J- wire into the external carotid artery. The TCAR sheath was inserted with the footplate removed. Once it was in place and held against the artery it was sutured to the chest wall and the incision edge. We then flushed the tubing appropriately. The venous return tubing was clamped onto the TCAR sheath. It was flushed through and then attached to the venous inflow sheath in the right groin. The sheath was checked for flow. The common carotid artery was then clamped. Flow through the venous return sheath was again checked and found to be adequate. We then inserted a 5 x 25 balloon backloaded on the wire. The wire was passed through the lesion into the petrous portion of the internal carotid. The 5 balloon was then advanced to the lesion. The lesion was then predilated with the 5 mm balloon. The balloon was removed. We then inserted the 9/7 x 30 stent. This was deployed across the lesion without difficulty. The catheter was removed. There was still a mild narrowing seen in the mid portion of the stent. We then inserted a 5.5 x 25 balloon and post dilated this area. The carotid was allowed to go 2 minutes with flow reversal. We did another angiogram which showed no residual stenosis and a nicely seated stent.The wire was removed and the common carotid artery was unclamped. The venous return tubing was clamped and removed from the TCAR sheath. The blood was allowed to flow back into the venous system. The TCAR sheath was then removed and the 5-0 Prolene suture securely tied. Hemostasis was noted of the puncture site. The patient was given 25 mg of protamine. Another ACT was performed which was 129. The sheath was pulled from the groin and pressure was applied. Wound was irrigated with Ancef solution. Adequate hemostasis was obtained of the wound. Once this was noted the wound was closed in usual fashion using a 3-0 Vicryl suture for the subcutaneous layer and a 4-0 subcutic ular Vicryl suture for the skin edges. Dermabond was used for dressing.The patient left the operation room in satisfactory condition and tolerated the procedure well. All needle and sponge counts were correct at the end of the procedure. I attest to the content of the Intraoperative Record and any orders documented therein. Any exceptions are noted below.
[2025-07-25] MEDS ORDERED: SUGAMMADEX SODIUM 200 MG/2 ML VIAL IV ONE (09:33)
[2025-07-25] MEDS: VISIPAQUE IV ONE (09:41)
[2025-07-25] MEDS ORDERED: STAT IV Infusion **Titration per Protocol STA (11:14)
[2025-07-25] MEDS ORDERED: NON-FORMULARY MEDICATION (Dextromethorphan-Guaifenesin [Mucinex Dm] 60-1,200 mg Tablet Ext PO SCH (11:14)
[2025-07-25] MEDS ORDERED: PHARMACY GLYCEMIC MGMT CONSULT PRN (11:14)
[2025-07-25] MEDS ORDERED: ALBUTEROL HFA 8 GM INHALER INH PRN (11:14)
[2025-07-25] MEDS ORDERED: PHENYLEPHRINE/NSS 25 MG/250 ML BAG IV PRN (11:14)
[2025-07-25] MEDS ORDERED: BISMUTH SUBSALICYLATE 262 MG CHEW PO PRN (11:30)
[2025-07-25] MEDS ORDERED: ARTIFICIAL TEARS OP PRN (11:39)
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
[2025-07-25] MEDS ORDERED: GLUCOSE 10 TAB/TUBE PO PRN (12:15)
[2025-07-25] MEDS ORDERED: GLUCOSE 40% GEL 15 GM TUBE PO PRN (12:15)
[2025-07-25] MEDS ORDERED: DEXTROSE 50% 50 ML SYRINGE IV PRN (12:15)
[2025-07-25] MEDS ORDERED: CARBOHYDRATES FOR HYPOGLYCEMIA PO PRN (12:15)
[2025-07-25] MEDS ORDERED: GLUCAGON FOR INJ 1 MG VIAL SQ PRN (12:15)
[2025-07-25] MEDS: INSULIN ASPART PER UNIT CHARGE SC SCH (12:47)
--- NOTE | 2025-07-25 12:53 | Anesthesiology Progress Note ---
Date of Service July 25, 2025 Anesthesia Post Procedure Vital Signs Vital Signs: Temp Pulse Pulse Pulse Resp BP BP 07/25/25 12:31 132/57 L 07/25/25 12:30 71 19 07/25/25 12:15 130/50 L 07/25/25 12:10 07/25/25 12:00 115/52 L 07/25/25 11:57 61 21 07/25/25 11:45 90 24 07/25/25 11:33 73 16 07/25/25 11:30 130/51 L 07/25/25 11:24 69 22 07/25/25 11:15 102/48 L 07/25/25 11:14 36.5 C 07/25/25 10:50 75 15 07/25/25 10:35 36.5 C 75 20 07/25/25 10:25 73 18 07/25/25 10:15 63 12 07/25/25 10:05 76 12 07/25/25 09:55 74 16 07/25/25 09:46 36.0 C L 93 H 14 07/25/25 07:31 81 16 07/25/25 06:53 07/25/25 06:53 36.5 C 71 16 120/54 L BP BP Pulse Ox O2 Del Method O2 Flow Rate 07/25/25 12:31 07/25/25 12:30 100 07/25/25 12:15 07/25/25 12:10 Nasal Cannula 07/25/25 12:00 07/25/25 11:57 98 Nasal Cannula 2 07/25/25 11:45 100 07/25/25 11:33 99 07/25/25 11:30 07/25/25 11:24 97 07/25/25 11:15 07/25/25 11:14 07/25/25 10:50 93/34 L 103/74 94 Nasal Cannula 2 07/25/25 10:35 93/33 L 114/46 L 96 Nasal Cannula 2 07/25/25 10:25 99/31 L 130/43 L 100 Nasal Cannula 2 07/25/25 10:15 97/30 L 117/57 L 96 Oxymask 4 07/25/25 10:05 97/30 L 116/58 L 96 Oxymask 4 07/25/25 09:55 100/32 L 113/53 L 97 Oxymask 6 07/25/25 09:46 115/34 L 127/47 L 90 Oxymask 6 07/25/25 07:31 95 Room Air 07/25/25 06:53 Room Air 07/25/25 06:53 111/67 95 Room Air Pain Intensity Left Leg: Pain Intensity: 6 Transfer of Care Handoff Completed per policy Notes Mental Status: alert / awake / arousable Patient Amnestic to Procedure: Yes Nausea / Vomiting: adequately controlled Pain: adequately controlled Airway Patency, RR, SpO2: stable & adequate BP & HR: stable & adequate Hydration State: stable & adequate Anesthetic Complications: no major complications apparent
--- NOTE | 2025-07-25 13:36 | Pharmacy Report ---
Pharmacy Glycemic Short Note 2 - Date of Service July 25, 2025 - Glycemic Short BSG Results (Last 24 hours): 07/25/25 07/25/25 07/25/25 06:24 06:42 09:50 Glucose 165 H POC Glucose 158 H 203 H 07/25/25 12:01 Glucose POC Glucose 130 H OUTPATIENT ANTIDIABETIC REGIMEN: * Dapagliflozin 10mg daily * Dulaglutide 1.5mg weekly * Metformin 1000mg twice daily * HbA1c: 5.5% (06/15/25) ASSESSMENT: * Farzaneh is a 55 year old female with T2DM who presents to hospital for right TCAR * Glucose was 150-200 overnight, slightly above goal range * T2DM diet * Will utilize meal coverage with insulin aspart at a stress level around 2 * Will monitor response to insulin and adjust parameters as needed * Stressors: recent surgery, phenylephrine (not currently running) PLAN FOR INPATIENT GLYCEMIC CONTROL: * Hold outpatient oral diabetes medications * Basal insulin * None * Bolus insulin * NovoLog per scale ACHS or Q6hrs while NPO * Goal Range: Low 110 mg/dL - High 140 mg/dL * Correction Factor: 25 mg/dL/unit * Nutritional / Prandial insulin per carb ratio of 1 unit per 10 grams CHO consumed
[2025-07-25] MEDS: PREGABALIN 150 MG CAP PO SCH (14:05)
[2025-07-25] MEDS: COUGH DROP (SUGAR FREE) LOZ 24 LOZ/1 BOX BUCCAL PRN (14:13)
[2025-07-25] MEDS: DEXTROMETHORPHAN POLYMR COMPLX 30MG/5 ML BTL PO SCH (20:10)
[2025-07-25] MEDS: FAMOTIDINE 20 MG TAB PO SCH (20:10)
[2025-07-25] MEDS: RIVAROXABAN 20 MG TAB PO SCH (20:11)
[2025-07-25] MEDS: PRAZOSIN HCL 1 MG CAP PO SCH (20:11)
[2025-07-25] MEDS: lamoTRIgine 100 MG TAB PO SCH (20:11)
[2025-07-25] MEDS: guaiFENesin 600 MG TABCR PO SCH (20:11)
[2025-07-25] MEDS: TICAGRELOR 90 MG TAB PO SCH (20:11)
[2025-07-25] MEDS: LURASIDONE HCL 20 MG TAB PO SCH (20:11)
[2025-07-25] MEDS: LIDOCAINE 5% 1 PATCH TD SCH (21:46)
[2025-07-25] MEDS: diphenhydrAMINE Capsule 25 MG CAP PO PRN (23:18)
[2025-07-26] MEDS: DICLOFENAC SOD 1% GEL 100 GM TUBE EXT PRN (06:48)
[2025-07-26] MEDS: SPIRONOLACTONE 25 MG TAB PO SCH (08:17)
[2025-07-26] MEDS: ATORVASTATIN 40 MG TAB PO SCH (08:20)
[2025-07-26] MEDS: CHOLECALCIFEROL 125 MCG (5,000 UNITS) TAB PO SCH (08:20)
[2025-07-26] MEDS: FLUTICASONE FUROATE 100MCG 14 PUFFS/INHALER INH SCH (08:21)
[2025-07-26] MEDS: UMECLIDINIUM/VILANTEROL 62.5/25MCG 7 PUFFS/INHALER INH SCH (08:21)
[2025-07-26] MEDS: ASPIRIN 81 MG ECTAB PO SCH (08:21)
[2025-07-26] MEDS: REMOVE LIDODERM PATCH SCH (08:23)
[2025-07-26] MEDS ORDERED: NON-FORMULARY MEDICATION (Fluticasone-Umeclidin-Vilanter [Trelegy Ellipta] 200-62.5-25 mcg INH SCH (09:00)
--- NOTE | 2025-07-26 09:30 | Critical Care Progress Note ---
Date of Service July 26, 2025 Assessment & Plan (1) Stenosis of right carotid artery: (2) S/P vascular surgery: (3) Obstructive sleep apnea: (4) Chronic bronchitis: (5) CAD (coronary artery disease): (6) Peripheral vascular disease, unspecified: (7) Atrial fibrillation: (8) CHF (congestive heart failure): Plan Farzaneh Nunez is a 55-year-old female with past medical history of Chronic sinusitis, RICKY, history of anal cancer s/p resection, no chemo or radiation, PTSD, anxiety, hypertension, diabetes, dyslipidemia, peripheral vascular disease, and COPD/chronic bronchitis who follows with Dr. Saini. Patient presented to [facility] on 07/25/2025 for a planned right TCAR for severe right carotid stenosis. Carotid stenosis s/p left TCAR in May 2025 and now Right TCAR on 07/25/2025 -Maintain SBP > 100. Phenylephrine gtt if unable to maintain SBP goal. -Neurovascular checks per protocol. -Cont aspirin and brilinta -Atropine if HR sustained for < 40bpm CAD; atrial fibrillation; HFrEF -Sinus rhythm on presentation to ICU -Restart Xarelto on 07/25/2025 qhs -Start lisinopril on 07/26 am -Monitor COPD; chronic bronchitis -On trelegy 200 at home. Outpatient prescription renewed as [facility] had run out of it. -Cont Incruse and breo while inpatient. -PRN albuterol -Maintain SpO2 > 88% -Cont mucinex and dextromethoraphan GERD -Cont pepcid and protonix Diabetes Mellitus Type II -SSI ac and has -Maintain BG 140-180 Critical care will sign off Admission and Anticipated Discharge Date Admission Date: July 25, 2025 Subjective No overnight events Physical Exam Physical Exam: General: Alert. nontoxic. Skin: Warm, dry, Head: Atraumatic Ears, nose, mouth and throat: airway patent Cardiovascular: Normal peripheral perfusion Respiratory: no respiratory distress Gastrointestinal: Non distended Musculoskeletal: No deformity Results & Data Results & Data Vital Signs (Past 12 Hours) Vital Signs Temp Pulse Resp BP Pulse Ox O2 Del Method 07/26/25 08:16 36.9 C 07/26/25 08:00 104/37 L 07/26/25 07:48 60 17 92 Room Air 07/26/25 07:12 60 14 88 L 07/26/25 06:51 63 07/26/25 06:48 74 22 94 07/26/25 06:06 55 L 10 L 97 07/26/25 06:00 100/49 L 07/26/25 05:51 73 17 99 07/26/25 05:00 133/73 07/26/25 05:00 133/73 07/26/25 05:00 73 15 95 07/26/25 04:09 54 L 17 93 07/26/25 04:00 36.8 C 07/26/25 04:00 121/47 L 07/26/25 03:54 57 L 20 91 07/26/25 03:09 60 15 97 07/26/25 03:00 115/42 L 07/26/25 02:01 111/41 L 07/26/25 02:00 58 L 18 93 07/26/25 01:12 56 L 17 95 07/26/25 01:10 119/52 L 07/26/25 00:00 36.6 C 07/26/25 00:00 55 L 17 114/52 L 90 07/26/25 00:00 60 07/25/25 23:00 60 18 119/38 L 96 07/25/25 22:31 117/47 L 07/25/25 22:30 55 L 21 98 07/25/25 22:00 51 L 18 100 Coding Level of Care Code 16202 SUB INP/OBS CARE 10/28MIN Diagnoses Stenosis of right carotid artery I65.21 S/P vascular surgery Z98.890 Obstructive sleep apnea G47.33 Chronic bronchitis J42 CAD (coronary artery disease) I25.10 Peripheral vascular disease, unspecified I73.9 Atrial fibrillation I48.91 CHF (congestive heart failure) I50.9
--- NOTE | 2025-07-26 12:55 | Surgery Progress Note ---
Date of Service July 26, 2025 Assessment & Plan (1) Stenosis of right carotid artery: Plan: POD 1 from a right tcar. Post op course uneventful. Will transfer to floor due to weak and tired post op. Most likely will by D\C tomorrow. Admission and Anticipated Discharge Date Admission Date: July 25, 2025 Subjective Patient denies any focal deficits. Swallowing without difficulty. She does feel tired from surgery and slightly weak. Physical Exam Constitutional: WD/WN, vitals as above Neck: trachea midline Respiratory: normal respiratory effort; no respiratory distress Cardiovascular: Rate/Rhythm: regular rate and regular rhythm Skin: + incision (dry and clean, mild ecchymos is) no problem with groin puncture site Neurologic: CN's II-XI intact bilaterally and moves all extremities Psychiatric: A+Ox3, euthymic affect Results & Data Vital Signs (Past 12 Hours) Vital Signs Temp Pulse Resp BP Pulse Ox O2 Del Method 07/26/25 11:39 73 13 92 Room Air 07/26/25 11:09 54 L 13 93 07/26/25 11:00 114/70 07/26/25 10:54 61 14 90 07/26/25 10:30 57 L 10 L 96 Room Air 07/26/25 10:00 111/43 L 07/26/25 10:00 56 L 10 L 97 07/26/25 09:45 59 L 14 97 07/26/25 09:45 109/39 L 07/26/25 09:45 109/39 L 07/26/25 09:45 109/39 L 07/26/25 09:33 55 L 14 92 07/26/25 09:15 123/44 L 07/26/25 09:09 88 10 L 83 L 07/26/25 09:05 96/43 L 07/26/25 09:05 96/43 L 07/26/25 09:03 59 L 19 95 07/26/25 08:51 75 19 94 07/26/25 08:16 36.9 C 07/26/25 08:15 59 L 12 89 L 07/26/25 08:00 104/37 L 07/26/25 07:48 60 17 92 Room Air 07/26/25 07:12 60 14 88 L 07/26/25 06:51 63 07/26/25 06:48 74 22 94 07/26/25 06:06 55 L 10 L 97 07/26/25 06:00 100/49 L 07/26/25 05:51 73 17 99 07/26/25 05:00 133/73 07/26/25 05:00 133/73 07/26/25 05:00 73 15 95 07/26/25 04:09 54 L 17 93 07/26/25 04:00 36.8 C 07/26/25 04:00 121/47 L 07/26/25 03:54 57 L 20 91 07/26/25 03:09 60 15 97 07/26/25 03:00 115/42 L 07/26/25 02:01 111/41 L 07/26/25 02:00 58 L 18 93 07/26/25 01:12 56 L 17 95 07/26/25 01:10 119/52 L
[2025-07-27] MEDS: FLUTICASONE PROPIONATE NA SPR 16 GM BTL PRN (02:17)
[2025-07-27 07:05] VITALS: RESP 18; TEMP 98.4; O2SAT 89
[2025-07-27 10:55] VITALS: BP 108/67; PULSE 60
--- NOTE | 2025-07-27 10:59 | Surgery Progress Note ---
Date of Service July 27, 2025 Assessment & Plan (1) Stenosis of right carotid artery: Plan: POD #2 after uncomplicated R TCAR. VSS. Mild post op pain controlled with medication. Discussed with sachi Manzano for d/c home today. Admission and Anticipated Discharge Date Admission Date: July 25, 2025 Subjective 55 yo f POD #2 after R TCAR, seen in f/u today. Pt states feeling ok, just tired and continuing with her chronic leg pain. No new complaints. Review of Systems Review of Systems: All systems reviewed & are unremarkable except as noted in HPI & below Physical Exam Constitutional: WD/WN, vitals as above Neck: trachea midline Respiratory: normal respiratory effort; no respiratory distress Cardiovascular: Rate/Rhythm: regular rate and regular rhythm Skin: + incision (dry and clean, mild ecchymos is) Neurologic: CN's II-XI intact bilaterally and moves all extremities Psychiatric: A+Ox3, euthymic affect Results & Data Vital Signs (Past 12 Hours) Vital Signs Temp Pulse Pulse Pulse Resp BP BP 07/27/25 10:54 36.9 C 60 62 18 121/63 108/67 07/27/25 08:00 07/27/25 07:03 36.9 C 62 18 121/63 07/26/25 23:36 88 21 Pulse Ox O2 Del Method FiO2 07/27/25 10:54 89 L 07/27/25 08:00 Room Air 07/27/25 07:03 89 L Room Air 07/26/25 23:36 91 21
--- NOTE | 2025-07-27 11:01 | Discharge Summary ---
Date of Service July 27, 2025 Admission HPI Per Admitting Provider Ms. Nunez is a middle-aged female presents who had a left tcar done two months ago. She has a severe stenosis of her right internal carotid artery. Patient denies amaurosis, unilateral extremity weakness numbness or tingling, difficulty speaking or swallowing, facial droop, sudden onset of confusion. She does state that she was told she had a stroke in the past, but is unsure when this occurred. 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 She does have significant neuropathy in all 4 extremities, and has some tingling in her extremities most the time. She denies headache presently, fever recently, chest pain, shortness of breath at rest, abdominal pain, nausea, vomiting, rest pain, claudication, nonhealing wounds or ulcers, other complaints. She does have a history of undergoing stenting in her lower extremity arteries by Dr. Ayala in the past, but denies any new problems related to that presently. Admission Exam Per Admitting Provider Constitutional: In general patient is a healthy-appearing well-nourished well developed middle-aged female in no distress. She appears older than stated age. She is alert and oriented x 3 without any focal deficits. Her head is normocephalic and atraumatic. Her carotids do not demonstrate a bruit. Her heart is irregular. Her lungs are decreased significantly with sparse expiratory wheezing but clear otherwise. Her abdomen is soft nontender with normoactive bowel sounds in 4 r quadrants. Brachial and radial pulses are +2 in the left 3 on the right. Femoral pulses are +2 in the right +3 in the left. Distal pulses are +1. She has brisk capillary fill and no sign of distal ischemia. She has trace to 1+ edema. Principal Diagnosis 1. s/p R TCAR 2. R ICAS Discharge Exam Constitutional WD/WN, vitals as above Neck trachea midline Respiratory normal respiratory effort; no respiratory distress Cardiovascular Rate/Rhythm: regular rate and regular rhythm Skin + incision (dry and clean, mild ecchymosis) Neurologic CN's II-XI intact bilaterally and moves all extremities Psychiatric A+Ox3, euthymic affect Discharge Data Allergies Allergy/AdvReac Type Severity Reaction Status Date / Time fluconazole [From Diflucan] Allergy Severe Anaphylaxis Verified 07/25/25 06:35 aripiprazole [From Abilify] AdvReac Intermediate Hyperglycem Verified 07/25/25 06:35 ia codeine AdvReac Intermediate "It made Verified 07/25/25 06:35 me feel weird" lithium AdvReac Intermediate Kidney Verified 07/25/25 06:35 Problems tramadol AdvReac Intermediate Vomiting Verified 07/25/25 06:35 trazodone AdvReac Intermediate Restless Verified 07/25/25 06:35 legs ziprasidone [From Geodon] AdvReac Intermediate Hypertensio Verified 07/25/25 06:35 n rosuvastatin [From Crestor] AdvReac Unknown Unknown Verified 07/25/25 06:35 Consultations 07/25/25 11:14 Consult Pharmacy Clerk Routine Procedures Performed Operation Date: 07/25/25 08:00 Actual Procedures p Right Transcarotid Artery Revascularization, Ultrasound Left Common Femoral Vein(Right) - Ridge Bowen MD Ordered Studies 07/25/25 07:16 EV angio carotid cerv RT Routine US EV guide vascular access Routine Hospital Course (1) Stenosis of right carotid artery: POD #2 after uncomplicated R TCAR. VSS. Mild post op pain controlled with medication. Discussed with sachi Manzano for d/c home today. Total Time Total Time Spent Total Time Spent (In Minutes): 0 Discharge Plan Discharge Items Patient Disposition: Home - Self-Care Reason For Visit: Right Internal Carotid Artery Stenosis Discharge Diagnosis: 1. s/p R TCAR 2. R ICAS Activity: Per Instructions section Non-emergency contact: Primary Care Provider and Surgeon Call non-emergency contact if: you have any medication questions, your symptoms worsen, your pain is not controlled, your pain is concerning for you, you have a fever, your wound has increased redness and your wound has increased drainage Follow-up/Referrals: Ridge Bowen MD [Physician] - (Follow up with Dr Bowen or Ryanne Albarado PA-C, in 2 weeks) Maci Arias PA-C [Primary Care Provider] - (Follow up with your PCP within 2 weeks) Diet: Carb Consistent or DM2 and Heart Healthy Addtl Attending Provider Instructions: SPECIAL CARE INSTRUCTIONS: Diet: * You may return to previous diet. Medications: * Continue to take Aspirin, ticagrelor, and atorvastatin as directed. DO NOT STOP THESE MEDICATIONS WITHOUT SPEAKING TO DR BOWEN'S OFFICE. Incision Care: * You may shower, but do not rub incision. You may let the warm soapy water run over it. Be sure to dry the incision well after bathing. * Do not shave directly over the incision until it is healed. * DO NOT IMMERSE THE INCISION IN A TUB/POOL/etc. UNTIL HEALED. Restrictions: * Do not drive if you are still taking any narcotic pain medication. * Do not lift anything heavier than a gallon of milk for one week after going home. Possible Complications: * Numbness - It is normal to have some numbness around the incision. Numbness can extend beyond the incision to areas of the neck, ear and face. The numbness is due to bruising of nerves during the surgery and will gradually improve over a period of months. * Hoarseness/Difficulty Speaking and Swallowing - The bruising of nerves in the neck can also cause a hoarse voice, difficulty speaking or swallowing. This ma y improve over time, HOWEVER, if it continues for more than a few days please contact our office ([phone]). * Excessive Swelling - There will be some swelling immediately after surgery which usually resolves within one week. If you notice that the swelling is getting worse, notify your surgeon ([phone]). * Drainage/Bleeding - If there is any drainage or bleeding, it should be a very small amount (less than a teaspoon per day). If you have excessive bleeding or drainage from the incision, call your surgeon ([phone]) right away. ACTIVATION OF EMERGENCY MEDICAL SYSTEM: Call 911, immediately, if you experience any of the following: Warning Signs and Symptoms of Stroke: * Sudden numbness or weakness of the face, arm or leg, especially on one side of the body * Sudden confusion, trouble speaking or understanding * Sudden trouble seeing in one or both eyes * Sudden trouble walking, dizziness, loss of balance or coordination * Sudden severe headache with no cause Do not delay calling 911 if you experience any warning signs or symptoms of a stroke. Delay in seeking medical attention may affect what treatments can be given to you. Risk Factors for Stroke: You can reduce your chances of stroke by working with your medical provider to adopt a healthy lifestyle. Some specific ways to lower your chance of stroke are: * If you are a smoker, now is the time to stop smoking cigarettes * If you are diabetic, improve the control of your blood sugars * Avoid excessive amounts of alcohol * Control high blood pressure * Lose weight if you are overweight * Be sure to lead an active lifestyle * Eat a healthy diet low in salt, cholesterol and fat You should know about other risk factors for stroke that you are unable to control. These include: * Age 55 years or older * Male gender * Certain racial groups: , or / * Family History of Stroke, Mini stroke or Heart Attack * Sickle Cell Disease You will be receiving a call from the Vascular Surgery Nurse after you are discharged. FOLLOW UP VISIT: It is important for you to keep your follow up appointments with your medical provider. Keep any scheduled doctor appointments. Pending Studies at Discharge: No Stand-Alone Forms: [facility], Smoking Cessation Medications and DC Order Prescriptions: New oxycodone-acetaminophen [Percocet] 5-325 mg Tablet 1 tab PO Q4H PRN (Reason: pain) Qty: 20 0RF Continued metformin 500 mg tablet extended release 24 hr 1,000 mg PO BID Qty: 120 5RF spironolactone 25 mg tablet 25 mg PO QAM Qty: 90 1RF pregabalin [Lyrica] 150 mg capsule 150 mg PO TID Qty: 90 2RF Trulicity 1.5 mg/0.5 mL pen injector 1.5 mg subcut Q7D Qty: 2 5RF Patient Comments: tries to take on tuesdays, sometimes wednesday (DME) lancets 33 gauge misc See Dose Instructions .ROUTE .MEDSUPPLY Qty: 100 11RF Rx Instructions: use to test blood sugar TID Trelegy Ellipta 200-62.5-25 mcg blister with device 1 inh inhalation QAM Qty: 60 0RF (DME) OneTouch Ultra Blue Test Strip strip See Dose Instructions .ROUTE .MEDSUPPLY Qty: 10 Rx Instructions: Test blood sugars 3 times a day Farxiga 10 mg tablet 10 mg PO QAM prazosin 2 mg capsule 2 mg PO HS atorvastatin 40 mg tablet 40 mg PO QAM Opcon-A 0.98913-2.315 % drops 1 drp ophthalmic (eye) QID PRN (Reason: Dry Eye(S)) (DME) blood-glucose meter [OneTouch Verio Flex meter] Misc See Rx Instructions .Route Qty: 1 0RF Rx Instructions: Check blood glucose 3x daily (DME) OneTouch Verio test strips Strip See Rx Instructions .Route Qty: 100 11RF Rx Instructions: Check blood glucose 3x daily (DME) lancets [Comfort EZ Lancets] 28 gauge [facility] See Rx Instructions .Route Qty: 100 11RF Rx Instructions: check blood glucose 3x daily lisinopril 10 mg tablet 10 mg PO QAM bismuth subsalicylate [Pepto-Bismol] 1 applic PO DAILY PRN (Reason: Upset Stomach) cholecalciferol (vitamin D3) [Vitamin D3] 125 mcg (5,000 unit) Tablet 125 mcg PO DAILY albuterol sulfate [Ventolin HFA] 90 mcg/actuation Hfa Aerosol Inhaler 2 puff INHALATION Q6H PRN (Reason: Shortness Of Breath) famotidine 40 mg Tablet 20 mg PO BID pantoprazole 20 mg Tablet,Delayed Release (Dr/Ec) 20 mg PO QAM lurasidone [Latuda] 40 mg Tablet 40 mg PO HS Rx Instructions: must administer with food (at least 350 calories) aspirin 81 mg tablet,delayed release (DR/EC) 81 mg PO QAM Xarelto 20 mg tablet 20 mg PO HS Rx Instructions: must administer with evening meal diphenhydramine HCl [Benadryl] 25 mg Capsule 25 mg PO TID PRN (Reason: allergies and/or sleep) ticagrelor [Brilinta] 90 mg Tablet 90 mg PO BID lamotrigine [Lamictal] 200 mg tablet 200 mg PO BID fluticasone propionate [Flonase Allergy Relief] 50 mcg/actuation spray,suspension 1 spray intranasal BID PRN (Reason: allergies) Rx Instructions: administer into each nostril dextromethorphan-guaifenesin [Mucinex DM] 60-1,200 mg Tablet Extended Release 12 Hr 1 tab PO Q12H varenicline tartrate [Chantix] 0.5 mg Tablet 0.5 mg PO BID Rx Instructions: administer on days 1, 2, and 3 of therapy Discharge Orders: Discharge Order (Routine); Ordered 07/27/25 Ordered By: Ryanne Albarado Admission Data Admit Date/Time: 07/25/25 07:38 Attending Provider: Ridge Bowen Admit Provider: Ridge Bowen Primary Care Provider: Maci Arias Other Providers: Edd Segundo; Rafael Saini; Donte Martines; Emmanuel Hernandez; Bobby Colon; Gemini Mcknight; Cedric Salazar; Alan Teixeira; Aydee Vieyra Other Interventions: Discharge Summary Assessment (RN) Last Done: 07/27/25 10:54
== END 2025-07-27 12:50 | disposition home health service (06) | DRG 35 ==
LOC: ASU 06:19 → 1E 07:38 → 3W 07-26 17:49
PROC: EV.TCAR (2025-07-25 08:00)

== ENCOUNTER 2025-09-11 12:23 | Inpatient (IN) ==
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
[2025-09-11 13:05] LABS: Hematocrit (blood only) 23.5 % (37.0-47.0); Hemoglobin 7.6 g/dL (12.0-16.0); Immature Granulocytes # (auto) 0.08 K/uL (0.01-0.20); Immature Granulocytes % (auto) 0.6 %; Mean Corpuscular Hemoglobin 23.9 pg (25.0-34.0); Mean Corpuscular Volume 73.9 fL (80.0-100.0); Platelet Count 286 K/uL (130-400); RDW Standard Deviation 39.8 fL (36.4-46.3); Red Blood Count 3.18 M/uL (4.20-5.40); White Blood Count 12.98 K/ul (4.8-10.8)
[2025-09-11 13:28] LABS: Hypochromasia Present; Microcytosis Present
[2025-09-11] MEDS ORDERED: SODIUM CHLORIDE 0.9% 100 ML IV PRN ×3 (13:30→17:07)
[2025-09-11 13:34] LABS: Alanine Aminotransferase 10.0 U/L (7-52); Albumin Globulin Ratio 1.2 (0.9-2); Albumin Level 4.0 gm/dl (3.4-5.0); Alkaline Phosphatase 106.0 U/L (34-104); Anion Gap 8.0 (3-11); Bilirubin,Total 0.3 mg/dl (0.2-1.0); Blood Urea Nitrogen 31.0 mg/dl (6-23); Calcium 10.0 mg/dl (8.6-10.3); Carbon Dioxide 24.0 mmol/L (21-32); Chloride 91.0 mmol/L (98-107); Creatinine Clr Calc Pharmacy 43.8 ml/min; Globulin 3.4 gm/dl (2.5-4.0); Glucose 134.0 mg/dl (70-99(Fasting)); Potassium 5.1 mmol/L (3.5-5.1); Sodium 123.0 mmol/L (136-145); Total Protein 7.4 gm/dl (6.0-8.3)
[2025-09-11] MEDS: ACETAMINOPHEN 1,000 MG/100 ML VIAL IV STA (13:48)
[2025-09-11] MEDS: FAMOTIDINE 20MG IV PUSH 20 MG/5 ML SYR IV STA (13:48)
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
[2025-09-11] MEDS: MoRPHine SULFATE 2 MG/ML CARP IV STA (14:45)
[2025-09-11 14:52] LABS: Iron 12.0 mcg/dl (35-150); Uric Acid 8.2 mg/dl (2.6-7.2)
--- NOTE | 2025-09-11 15:53 | XRay Report ---
SINGLE VIEW CHEST CLINICAL HISTORY: Anemia FINDINGS: An AP, portable, upright chest radiograph is compared to study dated 07/25/2025 and correla lisandro with chest CT dated 08/05/2025. The heart is top normal for projection noting atherosclerotic calc ification of the thoracic aorta. Emphysema and chronic interstitial thickening is similar to previous . There is mild bibasilar scarring/atelectasis. No airspace consolidation or pleural effusion is iden tified. No pneumothorax is seen. The skeletal structures are osteopenic. The bony thorax is grossly i ntact. IMPRESSION: Emphysematous change with no active disease in the chest. ACT 112: Negative or not required by law. Electronically signed by: Tommy Ferguson M.D. 09/11/2025 3:52 PM
[2025-09-11] MEDS ORDERED: MoRPHine SULFATE 2 MG/ML CARP IV PRN (16:16)
[2025-09-11] MEDS ORDERED: GLUCOSE 40% GEL 15 GM TUBE PO PRN (16:16)
[2025-09-11] MEDS ORDERED: GLUCAGON FOR INJ 1 MG VIAL SQ PRN (16:16)
[2025-09-11] MEDS ORDERED: GLUCOSE 10 TAB/TUBE PO PRN (16:16)
[2025-09-11] MEDS ORDERED: ALBUTEROL HFA 8 GM INHALER INH PRN (16:16)
[2025-09-11] MEDS ORDERED: NON-FORMULARY MEDICATION (Dextromethorphan-Guaifenesin [Mucinex Dm] 60-1,200 mg Tablet Ext PO SCH (16:16)
[2025-09-11] MEDS ORDERED: DEXTROSE 50% 50 ML SYRINGE IV PRN (16:16)
[2025-09-11] MEDS ORDERED: CARBOHYDRATES FOR HYPOGLYCEMIA PO PRN (16:16)
[2025-09-11] MEDS ORDERED: ONDANSETRON INJ 2 MG/ML 2 ML VIAL IV PRN (16:16)
[2025-09-11] MEDS: HYDROmorphone INJ 1 MG/ML SYRINGE IV PRN (16:58)
[2025-09-11] MEDS: IRON SUCROSE 200 MG in SODIUM CHLORIDE 0.9% 100 ML IV ONE (17:54)
[2025-09-11] MEDS: COLCHICINE 0.6 MG TAB PO ONE (17:55)
[2025-09-11] MEDS: INSULIN ASPART PER UNIT CHARGE SC SCH (18:44)
[2025-09-11] MEDS: RIVAROXABAN 15 MG TAB PO SCH (18:45)
[2025-09-11] MEDS: PREGABALIN 150 MG CAP PO SCH (21:11)
[2025-09-11] MEDS: COLCHICINE 0.6 MG TAB PO SCH (21:12)
[2025-09-11] MEDS: lamoTRIgine 100 MG TAB PO SCH (21:12)
[2025-09-11] MEDS: TICAGRELOR 90 MG TAB PO SCH (21:12)
[2025-09-11] MEDS: LURASIDONE HCL 20 MG TAB PO SCH (21:12)
[2025-09-11] MEDS: FAMOTIDINE 40 MG TABLET PO SCH (21:12)
[2025-09-11] MEDS: PRAZOSIN HCL 1 MG CAP PO SCH (21:12)
[2025-09-11 23:38] LABS: Hematocrit (blood only) 29.3 % (37.0-47.0); Hemoglobin 9.8 g/dL (12.0-16.0)
[2025-09-12 06:01] LABS: Hematocrit (blood only) 29.2 % (37.0-47.0); Hemoglobin 9.8 g/dL (12.0-16.0); Immature Granulocytes # (auto) 0.11 K/uL (0.01-0.20); Immature Granulocytes % (auto) 1.0 %; Mean Corpuscular Hemoglobin 25.5 pg (25.0-34.0); Mean Corpuscular Volume 75.8 fL (80.0-100.0); Platelet Count 247 K/uL (130-400); RDW Standard Deviation 41.3 fL (36.4-46.3); Red Blood Count 3.85 M/uL (4.20-5.40); White Blood Count 10.64 K/ul (4.8-10.8)
[2025-09-12 06:15] LABS: Anion Gap 9.0 (3-11); Blood Urea Nitrogen 28.0 mg/dl (6-23); Calcium 9.7 mg/dl (8.6-10.3); Carbon Dioxide 23.0 mmol/L (21-32); Chloride 99.0 mmol/L (98-107); Creatinine Clr Calc Pharmacy 48.1 ml/min; Glucose 187.0 mg/dl (70-99(Fasting)); Potassium 5.2 mmol/L (3.5-5.1); Sodium 131.0 mmol/L (136-145)
[2025-09-12] MEDS ORDERED: NON-FORMULARY MEDICATION (Fluticasone-Umeclidin-Vilanter [Trelegy Ellipta] 200-62.5-25 mcg INH SCH (09:00)
[2025-09-12] MEDS: ASPIRIN 81 MG ECTAB PO SCH (09:05)
[2025-09-12] MEDS: SPIRONOLACTONE 25 MG TAB PO SCH (09:05)
[2025-09-12] MEDS: CHOLECALCIFEROL 125 MCG (5,000 UNITS) TAB PO SCH (09:05)
[2025-09-12] MEDS: ATORVASTATIN 40 MG TAB PO SCH (09:05)
[2025-09-12] MEDS: FLUTICASONE FUROATE 200MCG 14 PUFFS/INHALER INH SCH (09:06)
[2025-09-12] MEDS: UMECLIDINIUM/VILANTEROL 62.5/25MCG 7 PUFFS/INHALER INH SCH (09:06)
[2025-09-12] MEDS: IRON SUCROSE 200 MG in SODIUM CHLORIDE 0.9% 100 ML IV ONE (10:55)
--- NOTE | 2025-09-12 13:08 | Communication Note ---
Date of Service: September 12, 2025 Will reschedule her bypass after she is cleared medically in regards to source of blood loss. Patient will be heparinized during surgery and will need anticoagulation post procedure being that her bypass will be a prosthetic graft. This will most likely be in 2 weeks or so dependent on OR room availability
--- NOTE | 2025-09-12 15:01 | Hospitalist Progress Note ---
Date of Service September 12, 2025 Assessment & Plan (1) Iron deficiency anemia: Plan: Hemoglobin 6.9 on admission. No melena or hematochezia. Microcytosis noted. Iron level is low as expected. Parenteral iron replacement underway, day 2. 2 units packed red blood cells have been administered and hemoglobin has improved to 9.8. Serial labs. Fecal occult blood ordered and pending (2) Peripheral vascular disease, unspecified: Plan: Known peripheral arterial disease and carotid disease. History of right TCAR procedure in July of this year. Left Fempop bypass planned for September 11 was canceled and vascular surgery said this will be done in approximately 2 weeks. (3) Acute gout: Plan: Left forefoot. She received Solu-Medrol in the ED and is now on scheduled dosing of colchicine. Uric acid level is 8.2. Allopurinol should be started after the acute gout attack has resolved. (4) Hyponatremia: Plan: Sodium 123 on admission. Serum osmolarity is slightly low at 270. Sodium has improved today to 131. No further intervention needed at this time. Will follow (5) Atrial fibrillation: Plan: Paroxysmal. Currently in normal sinus rhythm. She takes Xarelto chronically (6) Diabetes mellitus, type 2: Plan: ADA diet. Sliding scale coverage. She takes dapagliflozin, metformin, Trulicity as an outpatient (7) CHF (congestive heart failure): Plan: Chronic diastolic. No overt CHF at this time. Monitor intake and output. (8) Ambulatory dysfunction: Plan: Due to acute gout left foot. OT and PT evaluations ordered and pending. Plan Anticipate eventual discharge to SNF facility within the next day or 2. Admission and Anticipated Discharge Date Admission Date: September 11, 2025 Subjective Clinically improved. Left foot pain. Hemoglobin improved to 9.8 after 2 units packed red blood cells. Day 2 of parenteral iron replacement for iron deficiency. Sodium has improved to 131. I spoke to the son, Shin, today by phone. She remains on oral colchicine. Vascular surgery states that the left femoropopliteal bypass will be completed in 2 weeks time. Review of Systems 2 Review of Systems: Constitutionalno fever or chills ENTno blurred vision, no double vision, no epistaxis, no sore throat Respiratoryno cough, no wheezing, no shortness of breath Cardiacno palpitations, no chest pain, no syncope Dianelys nausea, vomiting, diarrhea, melena, hematochezia GUno urinary retention, no urinary incontinence, no dysuria, no hematuria Musculoskeletalleft forefoot redness and exquisite pain have improved. Left lower extremity and left foot remain warm to touch. No palpable pulses however. Satisfactory capillary refill noted. Skinno bruising, no rashes, no pruritus Neurono isolated weakness, no paresthesia Psychno depression, no anxiety. Physical Exam 2 Physical Exam: General-alert and oriented x3, no fever, no chills HEENT-head atraumatic and normocephalic, pupils equal and reactive to light, extraocular muscles intact Neck-no lymphadenopathy or thyromegaly, trachea midline Chest-clear to auscultation. No rales, wheezing or rhonchi Cardiac-regular rate and rhythm, normal S1 and S2 Abdomen-normal bowel sounds, no hepatosplenomegaly Extremities-left forefoot is reddened across the metatarsal phalangeal joints. However, exquisite tenderness in this area has lessened. No evidence of gangrene however. Capillary refill is satisfactory. Left foot is warm to touch. Neuro-cranial nerves II through XII intact, motor and sensory function within normal limits, strength symmetrical, no focal deficits Psych-normal mood. Results & Data Results & Data Vital Signs (Past 12 Hours) Vital Signs Temp Pulse Pulse Resp BP Pulse Ox O2 Del Method 09/12/25 11:09 36.5 C 58 L 18 147/73 H 96 Room Air 09/12/25 07:43 68 09/12/25 07:29 36.7 C 72 18 135/72 94 Room Air 09/12/25 03:51 36.7 C 65 18 124/68 91 Room Air Laboratory Results 09/12/25 05:32 09/12/25 05:32 PG Care Time/CCT Total # of Minutes Spent Total Time Spent with Patient: Total time spent is greater than 50% in coordination of care (as documented) at patient's floor/unit and/or counseling patient: Coding Level of Care Code 28998 SUB INP/OBS CARE 3/50MIN Diagnoses Iron deficiency anemia D50.9 Peripheral vascular disease, unspecified I73.9 Acute gout M10.9 Hyponatremia E87.1 Atrial fibrillation I48.91 Diabetes mellitus, type 2 E11.9 CHF (congestive heart failure) I50.9 Ambulatory dysfunction R26.2
[2025-09-12] MEDS: NICOTINE 7 MG/24 HR TDSY TD SCH (20:52)
[2025-09-13 07:07] LABS: Hematocrit (blood only) 27.1 % (37.0-47.0); Hemoglobin 8.7 g/dL (12.0-16.0); Immature Granulocytes # (auto) 0.08 K/uL (0.01-0.20); Immature Granulocytes % (auto) 0.7 %; Mean Corpuscular Hemoglobin 25.1 pg (25.0-34.0); Mean Corpuscular Volume 78.3 fL (80.0-100.0); Platelet Count 238 K/uL (130-400); RDW Standard Deviation 44.2 fL (36.4-46.3); Red Blood Count 3.46 M/uL (4.20-5.40); White Blood Count 12.03 K/ul (4.8-10.8)
[2025-09-13 07:52] LABS: Anion Gap 6.0 (3-11); Blood Urea Nitrogen 22.0 mg/dl (6-23); Calcium 9.2 mg/dl (8.6-10.3); Carbon Dioxide 27.0 mmol/L (21-32); Chloride 99.0 mmol/L (98-107); Creatinine Clr Calc Pharmacy 51.0 ml/min; Glucose 154.0 mg/dl (70-99(Fasting)); Potassium 4.9 mmol/L (3.5-5.1); Sodium 132.0 mmol/L (136-145)
[2025-09-13] MEDS: IRON SUCROSE 200 MG in SODIUM CHLORIDE 0.9% 100 ML IV ONE (09:36)
[2025-09-13] MEDS: REMOVE NICODERM PATCH SCH (09:39)
--- NOTE | 2025-09-13 10:51 | Hospitalist Progress Note ---
Date of Service September 13, 2025 Assessment & Plan (1) Iron deficiency anemia: Plan: Hemoglobin 6.9 on admission. No melena or hematochezia. Microcytosis noted. Iron level is low as expected. Parenteral iron replacement underway, day 3. 2 units packed red blood cells have been administered and hemoglobin improved to 9.8 yesterday, and hemoglobin noted to be 8.7 today, September 13. Serial labs. (2) Peripheral vascular disease, unspecified: Plan: Known peripheral arterial disease and carotid disease. History of right TCAR procedure in July of this year. Left Fempop bypass planned for September 11 was canceled and vascular surgery said this will be done in approximately 2 weeks. (3) Acute gout: Plan: Left forefoot. She received Solu-Medrol in the ED and is now on scheduled dosing of colchicine and oral prednisone. Uric acid level is 8.2. Allopurinol should be started after the acute gout attack has resolved. (4) Hyponatremia: Plan: Sodium 123 on admission. Serum osmolarity is slightly low at 270. Sodium has improved to 132 today, September 13. No further intervention needed at this time. Will follow (5) Atrial fibrillation: Plan: Paroxysmal. Currently in normal sinus rhythm. She takes Xarelto chronically (6) Diabetes mellitus, type 2: Plan: ADA diet. Sliding scale coverage. She takes dapagliflozin, metformin, Trulicity as an outpatient (7) CHF (congestive heart failure): Plan: Chronic diastolic. No overt CHF at this time. Monitor intake and output. (8) Ambulatory dysfunction: Plan: Due to acute gout left foot. The gout has improved considerably but she still needs quite a bit of assistance with ambulation. Placement proceedings are underway for [facility]. Continue OT and PT while hospitalized Plan Anticipate eventual discharge to SNF facility when arrangements are finalized Admission and Anticipated Discharge Date Admission Date: September 11, 2025 Subjective Left foot gout has improved but she still needs assistance with ambulation. She is now on oral prednisone therapy along with colchicine. Day 3 of parenteral iron replacement. Hemoglobin is down slightly from 9.8 yesterday to 8.7 today, September 13. Sodium improved to 132. Temporary placement at [facility] is pending. She states she needs help with her dog who is at home alone. Review of Systems 2 Review of Systems: Constitutionalno fever or chills ENTno blurred vision, no double vision, no epistaxis, no sore throat Respiratoryno cough, no wheezing, no shortness of breath Cardiacno palpitations, no chest pain, no syncope Dianelys nausea, vomiting, diarrhea, melena, hematochezia GUno urinary retention, no urinary incontinence, no dysuria, no hematuria Musculoskeletalleft forefoot redness has resolved and exquisite pain has improved quite a bit from admission. Left lower extremity and left foot remain warm to touch. No palpable pulses however. Satisfactory capillary refill noted. Skinno bruising, no rashes, no pruritus Neurono isolated weakness, no paresthesia Psychno depression, no anxiety. Physical Exam 2 Physical Exam: General-alert and oriented x3, no fever, no chills HEENT-head atraumatic and normocephalic, pupils equal and reactive to light, extraocular muscles intact Neck-no lymphadenopathy or thyromegaly, trachea midline Chest-clear to auscultation. No rales, wheezing or rhonchi Cardiac-regular rate and rhythm, normal S1 and S2 Abdomen-normal bowel sounds, no hepatosplenomegaly Extremities-left forefoot erythema has resolved. Tenderness in this area has lessened. No evidence of gangrene however. Capillary refill is satisfactory. Left foot is warm to touch. Neuro-cranial nerves II through XII intact, motor and sensory function within normal limits, strength symmetrical, no focal deficits Psych-normal mood. Results & Data Results & Data Vital Signs (Past 12 Hours) Vital Signs Temp Pulse Pulse Resp BP Pulse Ox O2 Del Method 09/13/25 07:44 37.1 C 61 18 130/72 90 Room Air 09/13/25 07:39 62 09/13/25 04:29 37.1 C 63 20 145/76 H 92 Room Air 09/13/25 00:05 36.7 C 63 20 124/79 95 Room Air Laboratory Results 09/13/25 06:30 09/13/25 06:30 PG Care Time/CCT Total # of Minutes Spent Total Time Spent with Patient: Total time spent is greater than 50% in coordination of care (as documented) at patient's floor/unit and/or counseling patient: Coding Level of Care Code 32504 SUB INP/OBS CARE 3/50MIN Diagnoses Iron deficiency anemia D50.9 Peripheral vascular disease, unspecified I73.9 Acute gout M10.9 Hyponatremia E87.1 Atrial fibrillation I48.91 Diabetes mellitus, type 2 E11.9 CHF (congestive heart failure) I50.9 Ambulatory dysfunction R26.2
[2025-09-13] MEDS: POLYETHYLENE (MIRALAX) 17 GM PACK PO SCH (16:26)
[2025-09-14 07:23] LABS: Hematocrit (blood only) 30.3 % (37.0-47.0); Hemoglobin 9.5 g/dL (12.0-16.0); Immature Granulocytes # (auto) 0.11 K/uL (0.01-0.20); Immature Granulocytes % (auto) 1.0 %; Mean Corpuscular Hemoglobin 24.9 pg (25.0-34.0); Mean Corpuscular Volume 79.3 fL (80.0-100.0); Platelet Count 247 K/uL (130-400); RDW Standard Deviation 45.1 fL (36.4-46.3); Red Blood Count 3.82 M/uL (4.20-5.40); White Blood Count 11.45 K/ul (4.8-10.8)
[2025-09-14 07:56] LABS: Anion Gap 7.0 (3-11); Blood Urea Nitrogen 23.0 mg/dl (6-23); Calcium 9.3 mg/dl (8.6-10.3); Carbon Dioxide 25.0 mmol/L (21-32); Chloride 101.0 mmol/L (98-107); Creatinine Clr Calc Pharmacy 53.2 ml/min; Glucose 184.0 mg/dl (70-99(Fasting)); Potassium 5.4 mmol/L (3.5-5.1); Sodium 133.0 mmol/L (136-145)
[2025-09-14] MEDS: COLCHICINE 0.6 MG TAB PO SCH (09:26)
--- NOTE | 2025-09-14 11:28 | Hospitalist Progress Note ---
Date of Service September 14, 2025 Assessment & Plan (1) Iron deficiency anemia: Plan: Hemoglobin 6.9 on admission. No melena or hematochezia. Microcytosis noted. Iron level was low as expected. Parenteral iron replacement administered for 3 days. Start oral iron replacement today, September 14. 2 units packed red blood cells administered on admission. Hemoglobin is now stable at 9.5 (2) Peripheral vascular disease, unspecified: Plan: Known peripheral arterial disease and carotid disease. History of right TCAR procedure in July of this year. Left Fempop bypass planned for September 11 was canceled and vascular surgery said this will be done in approximately 2 weeks. (3) Acute gout: Plan: Left forefoot. She received Solu-Medrol in the ED and is now on scheduled dosing of colchicine and oral prednisone. Colchicine down titrated from 3 times a day to twice a day today, September 14. Uric acid level is 8.2. Allopurinol should be started soon (4) Hyponatremia: Plan: Sodium 123 on admission. Serum osmolarity was slightly low at 270. Sodium has improved to 133 without intervention. Will follow (5) Atrial fibrillation: Plan: Paroxysmal. Currently in normal sinus rhythm. She takes Xarelto chronically (6) Diabetes mellitus, type 2: Plan: ADA diet. Sliding scale coverage. She takes dapagliflozin, metformin, Trulicity as an outpatient (7) CHF (congestive heart failure): Plan: Chronic diastolic. No overt CHF at this time. Monitor intake and output. (8) Ambulatory dysfunction: Plan: Due to acute gout left foot. The gout has improved considerably but she still needs quite a bit of assistance with ambulation. Placement proceedings are underway for [facility]. Continue OT and PT while hospitalized Plan Anticipate eventual discharge to SNF facility when arrangements are finalized Admission and Anticipated Discharge Date Admission Date: September 11, 2025 Subjective Stable overall. Lisinopril discontinued due to hyperkalemia. Sodium has improved without intervention to 133. Will down titrate colchicine to twice daily dosing. Left forefoot gout has responded nicely to colchicine therapy. She remains on oral prednisone therapy for now. She has received 3 doses of parenteral Venofer and oral iron replacement started today, September 14. Hemoglobin stable at 9.5 after transfusion and iron supplementation. Placement at [facility] is pending Review of Systems 2 Review of Systems: Constitutionalno fever or chills ENTno blurred vision, no double vision, no epistaxis, no sore throat Respiratoryno cough, no wheezing, no shortness of breath Cardiacno palpitations, no chest pain, no syncope Dianelys nausea, vomiting, diarrhea, melena, hematochezia GUno urinary retention, no urinary incontinence, no dysuria, no hematuria Musculoskeletalleft forefoot redness has resolved and exquisite pain has improved quite a bit from admission. Left lower extremity and left foot remain warm to touch. No palpable pulses however. Satisfactory capillary refill noted. Skinno bruising, no rashes, no pruritus Neurono isolated weakness, no paresthesia Psychno depression, no anxiety. Physical Exam 2 Physical Exam: General-alert and oriented x3, no fever, no chills HEENT-head atraumatic and normocephalic, pupils equal and reactive to light, extraocular muscles intact Neck-no lymphadenopathy or thyromegaly, trachea midline Chest-clear to auscultation. No rales, wheezing or rhonchi Cardiac-regular rate and rhythm, normal S1 and S2 Abdomen-normal bowel sounds, no hepatosplenomegaly Extremities-left forefoot erythema has resolved. Tenderness in this area has lessened. No evidence of gangrene however. Capillary refill is satisfactory. Left foot is warm to touch. Neuro-cranial nerves II through XII intact, motor and sensory function within normal limits, strength symmetrical, no focal deficits Psych-normal mood. Results & Data Results & Data Vital Signs (Past 12 Hours) Vital Signs Temp Pulse Pulse Resp BP Pulse Ox O2 Del Method 09/14/25 07:41 Room Air 09/14/25 07:38 36.6 C 54 L 18 120/71 93 Room Air 09/14/25 05:31 90 09/14/25 03:49 36.9 C 62 16 144/56 H 94 Room Air 09/13/25 23:39 36.6 C 62 18 144/51 H 96 Room Air Laboratory Results 09/14/25 07:05 09/14/25 07:05 PG Care Time/CCT Total # of Minutes Spent Total Time Spent with Patient: Total time spent is greater than 50% in coordination of care (as documented) at patient's floor/unit and/or counseling patient: Coding Level of Care Code 91753 SUB INP/OBS CARE 3/50MIN Diagnoses Iron deficiency anemia D50.9 Peripheral vascular disease, unspecified I73.9 Acute gout M10.9 Hyponatremia E87.1 Atrial fibrillation I48.91 Diabetes mellitus, type 2 E11.9 CHF (congestive heart failure) I50.9 Ambulatory dysfunction R26.2
[2025-09-14] MEDS: FERROUS GLUCONATE 324 MG TAB PO SCH (16:26)
--- NOTE | 2025-09-14 16:44 | Electrocardiogram Report ---
Test Reason : Blood Pressure : */* mmHG Vent. Rate : 80 BPM Atrial Rate : 80 BPM P-R Int : 168 ms QRS Dur : 86 ms QT Int : 358 ms P-R-T Axes : 67 14 111 degrees QTcB Int : 412 ms Normal sinus rhythm Cannot rule out Anterior infarct (cited on or before 10-Mar-2024) Abnormal ECG When compared with ECG of 10-Mar-2024 16:33, No significant change was found Confirmed by Sidney Klein [id number] on 09/14/2025 4:43:32 PM Referred By: [employer] Confirmed By: Sidney Klein
[2025-09-15 08:57] LABS: Hematocrit (blood only) 33.3 % (37.0-47.0); Hemoglobin 10.5 g/dL (12.0-16.0); Immature Granulocytes # (auto) 0.16 K/uL (0.01-0.20); Immature Granulocytes % (auto) 1.1 %; Mean Corpuscular Hemoglobin 25.3 pg (25.0-34.0); Mean Corpuscular Volume 80.2 fL (80.0-100.0); Platelet Count 260 K/uL (130-400); RDW Standard Deviation 45.5 fL (36.4-46.3); Red Blood Count 4.15 M/uL (4.20-5.40); White Blood Count 14.05 K/ul (4.8-10.8)
[2025-09-15 09:15] LABS: Anion Gap 8.0 (3-11); Blood Urea Nitrogen 22.0 mg/dl (6-23); Calcium 10.0 mg/dl (8.6-10.3); Carbon Dioxide 26.0 mmol/L (21-32); Chloride 101.0 mmol/L (98-107); Creatinine Clr Calc Pharmacy 64.5 ml/min; Glucose 168.0 mg/dl (70-99(Fasting)); Potassium 4.7 mmol/L (3.5-5.1); Sodium 135.0 mmol/L (136-145)
--- NOTE | 2025-09-15 11:27 | Hospitalist Progress Note ---
Date of Service September 15, 2025 Assessment & Plan (1) Iron deficiency anemia: Plan: Hemoglobin 6.9 on admission. No melena or hematochezia. Microcytosis noted. Iron level was low as expected. Parenteral iron replacement was administered for 3 days. Started oral iron replacement on September 14. 2 units packed red blood cells administered on admission. Hemoglobin is now up to 10.5. (2) Peripheral vascular disease, unspecified: Plan: Known peripheral arterial disease and carotid disease. History of right TCAR procedure in July of this year. Left Fempop bypass planned for September 11 was canceled and vascular surgery said this will be done in approximately 2 weeks. (3) Acute gout: Plan: Left forefoot. She received Solu-Medrol in the ED and is now on scheduled dosing of colchicine and oral prednisone. Colchicine down titrated from 3 times a day to twice a day on September 14. Uric acid level is 8.2. Allopurinol should be started soon (4) Hyponatremia: Plan: Sodium 123 on admission. Serum osmolarity was slightly low at 270. Sodium has improved without intervention. Will follow (5) Atrial fibrillation: Plan: Paroxysmal. Currently in normal sinus rhythm. She takes Xarelto chronically (6) Diabetes mellitus, type 2: Plan: ADA diet. Sliding scale coverage. She takes dapagliflozin, metformin, Trulicity as an outpatient (7) CHF (congestive heart failure): Plan: Chronic diastolic. No overt CHF at this time. Monitor intake and output. (8) Ambulatory dysfunction: Plan: Due to acute gout left foot. The gout has improved considerably but she still needs quite a bit of assistance with ambulation. Placement proceedings are underway for [facility]. Continue OT and PT while hospitalized Plan Anticipate eventual discharge to SNF facility when arrangements are finalized . Hopefully on Wednesday Admission and Anticipated Discharge Date Admission Date: September 11, 2025 Subjective The patient is complaining of increased left forefoot pain. Frequency of Dilaudid increased to every 3 hours. Hemoglobin improved to 10.5. Potassium has normalized to 4.7 off the lisinopril. Glucose acceptable at 168. Review of Systems 2 Review of Systems: Constitutionalno fever or chills ENTno blurred vision, no double vision, no epistaxis, no sore throat Respiratoryno cough, no wheezing, no shortness of breath Cardiacno palpitations, no chest pain, no syncope Dianelys nausea, vomiting, diarrhea, melena, hematochezia GUno urinary retention, no urinary incontinence, no dysuria, no hematuria Musculoskeletalleft forefoot redness has returned but the exquisite pain has improved quite a bit from admission. Left lower extremity and left foot remain warm to touch. No palpable pulses however. Satisfactory capillary refill noted. Skinno bruising, no rashes, no pruritus Neurono isolated weakness, no paresthesia Psychno depression, no anxiety. Physical Exam 2 Physical Exam: General-alert and oriented x3, no fever, no chills HEENT-head atraumatic and normocephalic, pupils equal and reactive to light, extraocular muscles intact Neck-no lymphadenopathy or thyromegaly, trachea midline Chest-clear to auscultation. No rales, wheezing or rhonchi Cardiac-regular rate and rhythm, normal S1 and S2 Abdomen-normal bowel sounds, no hepatosplenomegaly Extremities-left forefoot erythema has returned. Tenderness in this area has lessened quite a bit from admission. No evidence of gangrene however. Capillary refill is satisfactory. Left foot is warm to touch. Neuro-cranial nerves II through XII intact, motor and sensory function within normal limits, strength symmetrical, no focal deficits Psych-normal mood. Results & Data Results & Data Vital Signs (Past 12 Hours) Vital Signs Temp Pulse Resp BP BP Pulse Ox O2 Del Method 09/15/25 07:58 36.7 C 62 18 122/59 L 96 Room Air 09/15/25 03:42 37.1 C 60 18 154/74 H 94 Room Air Laboratory Results 09/15/25 08:42 09/15/25 08:42 PG Care Time/CCT Total # of Minutes Spent Total Time Spent with Patient: Total time spent is greater than 50% in coordination of care (as documented) at patient's floor/unit and/or counseling patient: Coding Level of Care Code 14291 SUB INP/OBS CARE 2/35MIN Diagnoses Iron deficiency anemia D50.9 Peripheral vascular disease, unspecified I73.9 Acute gout M10.9 Hyponatremia E87.1 Atrial fibrillation I48.91 Diabetes mellitus, type 2 E11.9 CHF (congestive heart failure) I50.9 Ambulatory dysfunction R26.2
[2025-09-15] MEDS: HYDROmorphone INJ 1 MG/ML SYRINGE IV PRN (14:25)
[2025-09-16 06:19] LABS: Hematocrit (blood only) 33.0 % (37.0-47.0); Hemoglobin 10.5 g/dL (12.0-16.0); Immature Granulocytes # (auto) 0.21 K/uL (0.01-0.20); Immature Granulocytes % (auto) 1.5 %; Mean Corpuscular Hemoglobin 25.7 pg (25.0-34.0); Mean Corpuscular Volume 80.7 fL (80.0-100.0); Platelet Count 225 K/uL (130-400); RDW Standard Deviation 46.6 fL (36.4-46.3); Red Blood Count 4.09 M/uL (4.20-5.40); White Blood Count 14.11 K/ul (4.8-10.8)
[2025-09-16 06:55] LABS: Anion Gap 7.0 (3-11); Blood Urea Nitrogen 23.0 mg/dl (6-23); Calcium 9.7 mg/dl (8.6-10.3); Carbon Dioxide 28.0 mmol/L (21-32); Chloride 100.0 mmol/L (98-107); Creatinine Clr Calc Pharmacy 70.0 ml/min; Glucose 230.0 mg/dl (70-99(Fasting)); Potassium 4.6 mmol/L (3.5-5.1); Sodium 135.0 mmol/L (136-145)
--- NOTE | 2025-09-16 16:11 | Hospitalist Progress Note ---
Date of Service September 16, 2025 Assessment & Plan (1) Iron deficiency anemia: Plan: Hemoglobin 6.9 on admission. No melena or hematochezia. Microcytosis noted. Iron level was low as expected. Parenteral iron replacement was administered for 3 days. Started oral iron replacement on September 14. 2 units packed red blood cells administered on admission. Hemoglobin is now up to 10.5. (2) Peripheral vascular disease, unspecified: Plan: Known peripheral arterial disease and carotid disease. History of right TCAR procedure in July of this year. Left Fempop bypass planned for September 11 was canceled and vascular surgery said this will be done in approximately 2 weeks. (3) Acute gout: Plan: Left forefoot. She received Solu-Medrol in the ED and is now on scheduled dosing of colchicine and oral prednisone. Colchicine down titrated from 3 times a day to twice a day on September 14. Uric acid level is 8.2. Allopurinol has been ordered (4) Hyponatremia: Plan: Sodium 123 on admission. Serum osmolarity was slightly low at 270. Sodium has improved without intervention. Will follow (5) Atrial fibrillation: Plan: Paroxysmal. Currently in normal sinus rhythm. She takes Xarelto chronically (6) Diabetes mellitus, type 2: Plan: ADA diet. Sliding scale coverage. She takes dapagliflozin, metformin, Trulicity as an outpatient. Prednisone has caused mild hyperglycemia. Dapaglifosin has been reordered (7) CHF (congestive heart failure): Plan: Chronic diastolic. No overt CHF at this time. Monitor intake and output. (8) Ambulatory dysfunction: Plan: Due to acute gout left foot. The acute gout has resolved. She remains on colchicine and prednisone. Allopurinol started for the hyperuricemia. She still needs quite a bit of assistance with ambulation. Placement proceedings are underway for [facility]. Continue OT and PT while hospitalized (9) Chronic pain: Plan: She is opioid dependent. She cannot have intravenous narcotics at [facility] so she has been switched to a fentanyl patch and oral oxycodone as needed today, September 16. Will adjust fentanyl patch strength depending on response.. Plan Anticipate eventual discharge to SNF facility when arrangements are finalized . Hopefully within the next day or 2 Admission and Anticipated Discharge Date Admission Date: September 11, 2025 Subjective Alert and oriented. Blood pressure is running a little on the high side since lisinopril was discontinued for hyperkalemia. Amlodipine started. Potassium is drifting down now to 4.6. Hemoglobin stable at 10.5. Oral prednisone therapy has increased her glucose somewhat. Her dapagliflozin has been reordered. Allopurinol started for the hyper- uricemia. Review of Systems 2 Review of Systems: Constitutionalno fever or chills ENTno blurred vision, no double vision, no epistaxis, no sore throat Respiratoryno cough, no wheezing, no shortness of breath Cardiacno palpitations, no chest pain, no syncope Dianelys nausea, vomiting, diarrhea, melena, hematochezia GUno urinary retention, no urinary incontinence, no dysuria, no hematuria Musculoskeletalleft forefoot redness has lessened and the exquisite pain has improved quite a bit from admission. Left lower extremity and left foot remain warm to touch. No palpable pulses however. Satisfactory capillary refill noted. Skinno bruising, no rashes, no pruritus Neurono isolated weakness, no paresthesia Psychno depression, no anxiety. Physical Exam 2 Physical Exam: General-alert and oriented x3, no fever, no chills HEENT-head atraumatic and normocephalic, pupils equal and reactive to light, extraocular muscles intact Neck-no lymphadenopathy or thyromegaly, trachea midline Chest-clear to auscultation. No rales, wheezing or rhonchi Cardiac-regular rate and rhythm, normal S1 and S2 Abdomen-normal bowel sounds, no hepatosplenomegaly Extremities-left forefoot erythema has nearly resolved. Tenderness in this area has lessened quite a bit from admission. No evidence of gangrene however. Capillary refill is satisfactory. Left foot is warm to touch. Neuro-cranial nerves II through XII intact, motor and sensory function within normal limits, strength symmetrical, no focal deficits Psych-normal mood. Results & Data Results & Data Vital Signs (Past 12 Hours) Vital Signs Temp Pulse Pulse Resp BP Pulse Ox O2 Del Method 09/16/25 16:04 37 C 71 18 136/75 94 Room Air 09/16/25 14:44 72 09/16/25 11:32 36.9 C 67 18 162/72 H 99 Room Air 09/16/25 11:04 Room Air 09/16/25 08:08 36.9 C 55 L 19 158/81 H 98 Room Air 09/16/25 08:00 64 Laboratory Results 12/14/25 05:55 09/16/25 05:55 PG Care Time/CCT Total # of Minutes Spent Total Time Spent with Patient: Total time spent is greater than 50% in coordination of care (as documented) at patient's floor/unit and/or counseling patient: Coding Level of Care Code 92108 SUB INP/OBS CARE 3/50MIN Diagnoses Iron deficiency anemia D50.9 Peripheral vascular disease, unspecified I73.9 Acute gout M10.9 Hyponatremia E87.1 Atrial fibrillation I48.91 Diabetes mellitus, type 2 E11.9 CHF (congestive heart failure) I50.9 Ambulatory dysfunction R26.2 Chronic pain G89.29
[2025-09-17 07:11] LABS: Hematocrit (blood only) 32.9 % (37.0-47.0); Hemoglobin 10.4 g/dL (12.0-16.0); Immature Granulocytes # (auto) 0.25 K/uL (0.01-0.20); Immature Granulocytes % (auto) 1.7 %; Mean Corpuscular Hemoglobin 25.4 pg (25.0-34.0); Mean Corpuscular Volume 80.4 fL (80.0-100.0); Platelet Count 227 K/uL (130-400); RDW Standard Deviation 47.3 fL (36.4-46.3); Red Blood Count 4.09 M/uL (4.20-5.40); White Blood Count 14.56 K/ul (4.8-10.8)
[2025-09-17 07:39] LABS: Anion Gap 8.0 (3-11); Blood Urea Nitrogen 23.0 mg/dl (6-23); Calcium 9.7 mg/dl (8.6-10.3); Carbon Dioxide 27.0 mmol/L (21-32); Chloride 98.0 mmol/L (98-107); Creatinine Clr Calc Pharmacy 62.7 ml/min; Glucose 230.0 mg/dl (70-99(Fasting)); Potassium 4.4 mmol/L (3.5-5.1); Sodium 133.0 mmol/L (136-145)
--- NOTE | 2025-09-17 11:18 | Hospitalist Progress Note ---
Date of Service September 17, 2025 Assessment & Plan (1) Iron deficiency anemia: (2) Peripheral vascular disease, unspecified: (3) Acute gout: (4) Ambulatory dysfunction: (5) Hyponatremia: (6) Chronic pain: Plan Farzaneh is a pleasant 55-year-old woman with past medical history of CAD, CAD, ASCVD, T2DM, neuropathy, GERD, Post esophagus. She was scheduled to have left femoropopliteal bypass on 09/11 that was postponed due to preop lab work revealing severe anemia with microcytosis. On admission she was also found to have acute gout of her left foot. She was admitted for management of her anemia and gout. #Iron deficiency anemia - Hemoglobin 6.9 on admission. Microcytosis noted. Iron level was low as expected. No melena or hematochezia - Received 2 units pRBC on admission - Received parenteral iron replacement x 3 days - Started/continues on oral iron replacement - Hemoglobin has improved and is remaining stable hgb 10.4 on 09/07 #Peripheral vascular disease - Known peripheral arterial disease and carotid disease. History of right TCAR procedure in July of this year - Left Fempop bypass planned for September 11 was canceled and vascular surgery said this will be rescheduled in approximately 2 weeks #Acute gout of left forefoot | Ambulatory dysfunction - Uric acid 8.2 on admission - She received Solu-Medrol in the ED and is now on scheduled dosing of colchicine and oral prednisone - Colchicine down titrated from TID to BIDrecommend 10-day total treatment course - Continue allopurinol - Ambulatory dysfunction secondary to acute gout - PT/OT recommending rehab, referral pending to [facility] #Hyponatremia - Sodium 123 on admission. Serum osmolarity was slightly low at 270 - Sodium has improved without intervention, Na 133 on 09/17 #Paroxysmal Atrial fibrillation - Currently in normal sinus rhythm - Continue Xarelto #T2DM - A1c 5.5% in June 2025 - She takes dapagliflozin, metformin, Trulicity as an outpatient - hold while inpatient - Prednisone has caused mild hyperglycemia - Continue Lantus + SSI while admitted. Dapagliflozin has been reordered #CHF - chronic diastolic. No overt CHF at this time. Monitor intake and output #Chronic pain - She is opioid dependent. She cannot have intravenous narcotics at [facility] so she has been switched to a fentanyl patch 25 mcg daily and oral oxycodone 10 mg Q4H PRN on 09/16 - Adjust fentanyl patch strength depending on response. VTE PPx: Jose Fto Dispo: Attempted to complete peer to peer with insurance company on 09/17, but there was no answer so a voicemail was left with a callback number. Anticipate eventual discharge to SNF facility if insurance authorization is approved versus discharge home with home health services next 24-48 hours. Admission and Anticipated Discharge Date Admission Date: September 11, 2025 Subjective Patient seen and evaluated at bedside. She reports ongoing pain in her left foot but notes this has improved overall compared to prior. She currently rates her pain 5/10 but notes she gets "sharp stabbing" pain intermittently and her pain is 7/10 at that time. We discussed that I will be calling her insurance company later this afternoon to hopefully get her SNF stay approved. We discussed if her insurance company denies SNF, she could be discharged home with home health services tomorrow. No additional complaints or concerns at this time. Telemetry reviewed: Sinus bradycardia/NSR rates 50-60s. Physical Exam Physical Exam: General: No acute distress, nondiaphoretic, well-developed, well-nourished. Skin: Warm, dry. Left foot toes are erythematous and mildly tender to palpation; scabs noted on left 1st and 5th toes without drainage. Cap refill is satisfactory. Cardiac: Well-perfused. Rate in 60s. Pulm: Normal respiratory effort. 97% on room air. Abdominal: Soft, nontender, nondistended. Bowel sounds present. Neuro: A&O x3. No focal neurological deficits. Results & Data Results & Data Vital Signs (Past 12 Hours) Vital Signs Temp Pulse Pulse Resp BP Pulse Ox O2 Del Method 09/17/25 07:41 97.9 F 57 L 20 165/68 H 96 Room Air 09/17/25 07:24 55 L 09/17/25 04:00 98.6 F 58 L 18 160/75 H 95 Room Air Laboratory Results Reviewed CBC with differential, BMP PG Care Time/CCT Total # of Minutes Spent Total Time Spent with Patient: Total time spent is greater than 50% in coordination of care (as documented) at patient's floor/unit and/or counseling patient: Coding Level of Care Code 57343 SUB INP/OBS CARE 3/50MIN Diagnoses Iron deficiency anemia D50.9 Peripheral vascular disease, unspecified I73.9 Acute gout of left foot, unspecified cause M10.9 Gout site: foot Gout etiology: unspecified cause Laterality: left Ambulatory dysfunction R26.2 Hyponatremia E87.1 Chronic pain syndrome G89.4 Chronic pain type: chronic pain syndrome (3) Acute gout Gout site: foot Gout etiology: unspecified cause Laterality: left Qualified Code(s): M10.9 - Gout, unspecified (6) Chronic pain Chronic pain type: chronic pain syndrome Qualified Code(s): G89.4 - Chronic pain syndrome
[2025-09-17] MEDS: ACETAMINOPHEN 325 MG TAB PO PRN (22:43)
[2025-09-18 03:52] VITALS: TEMP 98.2; O2SAT 95
[2025-09-18 07:52] VITALS: BP 165/66; PULSE 61; RESP 18
[2025-09-18 08:04] LABS: Hematocrit (blood only) 33.2 % (37.0-47.0); Hemoglobin 10.5 g/dL (12.0-16.0); Immature Granulocytes # (auto) 0.17 K/uL (0.01-0.20); Immature Granulocytes % (auto) 1.2 %; Mean Corpuscular Hemoglobin 25.7 pg (25.0-34.0); Mean Corpuscular Volume 81.2 fL (80.0-100.0); Platelet Count 213 K/uL (130-400); RDW Standard Deviation 48.3 fL (36.4-46.3); Red Blood Count 4.09 M/uL (4.20-5.40); White Blood Count 14.40 K/ul (4.8-10.8)
[2025-09-18 08:38] LABS: Anion Gap 9.0 (3-11); Blood Urea Nitrogen 28.0 mg/dl (6-23); Calcium 9.3 mg/dl (8.6-10.3); Carbon Dioxide 24.0 mmol/L (21-32); Chloride 96.0 mmol/L (98-107); Creatinine Clr Calc Pharmacy 61.8 ml/min; Glucose 306.0 mg/dl (70-99(Fasting)); Potassium 4.6 mmol/L (3.5-5.1); Sodium 129.0 mmol/L (136-145)
[2025-09-18] MEDS ORDERED: PHARMACY GLYCEMIC MGMT CONSULT PRN (09:10)
--- NOTE | 2025-09-18 09:52 | Pharmacy Report ---
Pharmacy Glycemic Short Note 2 - Date of Service September 18, 2025 - Glycemic Short BSG Results (Last 24 hours): 09/17/25 09/17/25 09/17/25 12:00 16:59 20:37 Glucose POC Glucose 246 H 222 H 204 H 09/18/25 09/18/25 07:39 07:41 Glucose 306 H* POC Glucose 289 H OUTPATIENT ANTIDIABETIC REGIMEN: * farxiga 10 mg po daily, trulicity 1.5 mg SQ weekly, metformin 1 gm bid ASSESSMENT: * 55 year old admitted with anemia. Pharmacy consulted for glycemic management. Receiving PO prednisone for gout. BSGs>300 this AM. Received total of 27 units of novolog yesterday, no basal insulin ordered. Will plan to give Lantus ~0.2 unit/kg x 1 now to help cover steroid effects. Novolog already given this AM, will tighten CR with next blood sugar check and lower goal range. PLAN FOR INPATIENT GLYCEMIC CONTROL: * Hold outpatient oral diabetes medications * Basal insulin * Lantus 20 units x 1 now * Bolus insulin * NovoLog per scale ACHS or Q6hrs while NPO * Goal Range: Low 110 mg/dL - High 140 mg/dL * Correction Factor: 20 mg/dL/unit * Nutritional / Prandial insulin per carb ratio of 1 unit per 7 grams CHO consumed
[2025-09-18] MEDS: LANTUS PER UNIT CHARGE SC STA (13:07)
--- NOTE | 2025-09-18 17:40 | Discharge Summary ---
"Discharge Summary Date of Service September 18, 2025 Principal Dx & Hospital Course #1 = Principal Diagnosis (1) Iron deficiency anemia: (2) Peripheral vascular disease, unspecified: (3) Acute gout: (4) Ambulatory dysfunction: (5) Hyponatremia: (6) Chronic pain: Jerrica Moy is a pleasant 55-year-old woman with past medical history of CAD, CAD, ASCVD, T2DM, neuropathy, GERD, Post esophagus. She was scheduled to have left femoropopliteal bypass on 09/11 that was postponed due to preop lab work revealing severe anemia with microcytosis. On admission she was also found to have acute gout of her left foot. She was admitted for management of her anemia and gout. #Iron deficiency anemia - Hemoglobin 6.9 on admission. Microcytosis noted. Iron level was low as expected. No melena or hematochezia - Received 2 units pRBC on admission - Received parenteral iron replacement x 3 days - Started/continues on oral iron replacement - Hemoglobin has improved and is remaining stable hgb 10.5 on 09/18 #Peripheral vascular disease - Known peripheral arterial disease and carotid disease. History of right TCAR procedure in July of this year - Left Fempop bypass planned for September 11 was canceled and vascular surgery said this will be rescheduled in approximately 2 weeks #Acute gout of left forefoot | Ambulatory dysfunction - Uric acid 8.2 on admission - She received Solu-Medrol in the ED and is now on scheduled dosing of colchicine and oral prednisone - Continue Colchicine BID through 09/20 to complete 10 day total course - Continue prednisone 30 mg daily x 5 additional days - Recommend starting allopurinol once gout flare resolves - Ambulatory dysfunction secondary to acute gout - PT/OT recommended rehab #Hyponatremia - Sodium 123 on admission. Serum osmolarity was slightly low at 270 - Sodium has improved without intervention #Hypertensionwas previously taking lisinopril 10 mg daily. Discontinued due to recurrent hyperkalemia. Started amlodipine 5 [address] its [address] #Paroxysmal Atrial fibrillation - Currently in normal sinus rhythm - Continue Xarelto #T2DM - A1c 5.5% in June 2025 - She takes dapagliflozin, metformin, Trulicity as an outpatient - held while inpatient and resumed on discharge - Prednisone has caused mild hyperglycemia - Used Lantus + SSI while admitted #CHF - chronic diastolic. No overt CHF at this time. Monitor intake and output #Chronic pain - She is opioid dependent. She cannot have intravenous narcotics at SNF so she has been switched to a fentanyl patch 25 mcg daily and oral oxycodone 10 mg Q4H PRN severe pain on 09/16 VTE PPx: Xarelto Dispo: Discharged to SNF on 09/18 Notes For Next Care Provider Medication Changes From Visit Please review med list below for adjustments from this hospitalization Admission HPI Per Admitting Provider 55-year-old white female with known peripheral arterial disease. She was scheduled for left femoropopliteal bypass today, September 11, but preoperative testing revealed significant anemia with microcytosis. She is probably iron deficient since she is on Xarelto and antiplatelet therapy. She is receiving 1 unit packed red blood cells in the ED for hemoglobin 6.9. No recent melena or hematochezia. She also is hyponatremic with sodium 123. Serum osmolarity is pending. She has exquisite left forefoot pain at rest. This could be acute gout and uric acid level is pending. Will start colchicine empirically. Vascular surgery consultation requested. Discharge Exam General: No acute distress, nondiaphoretic, well-developed, well-nourished. Skin: Warm, dry. Left foot toes are erythematous and mildly tender to palpation; scabs noted on left 1st and 5th toes without drainage. Cap refill is satisfactory. Cardiac: Well-perfused. Rate in 60s. Pulm: Normal respiratory effort. 95% on room air. Abdominal: Soft, nontender, nondistended. Bowel sounds present. Neuro: A&O x3. No focal neurological deficits. Discharge Plan Discharge Items Patient Disposition: Transfer Halfway Fac Reason For Visit: SEVERE ANEMIA, AMBULATORY DYSFUNCTION Discharge Diagnosis: Anemia, gout, ambulatory dysfunction Condition on Discharge: Fair Activity: Resume your previous activity Non-emergency contact: Primary Care Provider and Surgeon Call non-emergency contact if: you have any medication questions, your symptoms worsen and your pain is not controlled Follow-up/Referrals: Ridge Gaming MD [Physician] - (Reschedule femoropopliteal bypass as directed) Maci Arias PA-C [Primary Care Provider] - (Follow-up in 1-2 weeks) Diet: Carb Consistent or DM2 and Heart Healthy Addtl Attending Provider Instructions: Farzaneh, You were admitted to the hospital due to severe anemia. You received 2 units of blood transfusions, 3 days worth of IV iron replacement, and you were started on oral iron supplementation, and your hemoglobin level has improved and remained stable since then. You also were found to have acute gout of your left foot. You were started on medication to treat this and will continue taking medication for this on discharge. You were evaluated by physical and Occupational Therapy who recommended rehab. You are being discharged to [facility] for rehab. Upon discharge from the hospital: * Take colchicine 0.6 mg twice daily through 09/20 to complete a 10-day total course. This is to treat your gout. * Take prednisone 30 mg daily x 5 additional days. This is to treat your gout. * Start allopurinol 300 mg daily once your gout flare resolves. * Continue the oral iron supplementation you are started on while in the hospital. * Your lisinopril was discontinued and amlodipine was started in its place. * Apply 25 mcg fentanyl patch once every 3 days. * Take oxycodone 10 mg every 4 hours as needed for severe pain. Do not drive or operate heavy machinery while taking oxycodone as it is a narcotic pain medication. * Follow-up with the vascular surgery team to reschedule your surgery. * Follow-up with your PCP in 1-2 weeks. Please return to the hospital if you experience any of the following: Chest pain, difficulty breathing, inability to tolerate oral intake, dizziness, passing out, new or worsening confusion, or any other symptoms concerning for you. It was a pleasure taking care of you while you were in the hospital! Pending Studies at Discharge: No Stand-Alone Forms: My [facility] Skilled Items Patient informed of condition?: Yes DNR: No Discharge Level of Care: Skilled Communicable Disease: No Discharge Prognosis: Stable Lines: None Urinary Catheter: No Medications and DC Order Prescriptions: New amlodipine 5 mg Tablet 5 mg PO QAM Qty: 30 0RF fentanyl 25 mcg/hr Patch 72 Hour 1 patch transdermal Q3D Qty: 10 0RF colchicine [Colcrys] 0.6 mg Tablet 0.6 mg PO BID Qty: 5 0RF ferrous gluconate 324 mg (38 mg iron) Tablet 324 mg PO BIDM Qty: 60 0RF oxycodone 5 mg Tablet 10 mg PO Q4H PRN (Reason: severe pain (scale score 7-10)) Qty: 20 0RF prednisone 10 mg Tablet 30 mg PO DAILY Qty: 15 0RF allopurinol 300 mg Tablet 300 mg PO DAILY Qty: 30 0RF Rx Instructions: HOLD UNTIL GOUT FLARE RESOLVES, THEN START Continued metformin 500 mg tablet extended release 24 hr 1,000 mg PO BID Qty: 120 5RF spironolactone 25 mg tablet 25 mg PO QAM Qty: 90 1RF pregabalin [Lyrica] 150 mg capsule 150 mg PO TID Qty: 90 2RF Trulicity 1.5 mg/0.5 mL pen injector 1.5 mg subcut Q7D Qty: 2 5RF Patient Comments: tries to take on tuesdays, sometimes wednesday (DME) lancets 33 gauge misc See Dose Instructions .ROUTE .MEDSUPPLY Qty: 100 11RF Rx Instructions: use to test blood sugar TID Trelegy Ellipta 200-62.5-25 mcg blister with device 1 inh inhalation QAM Qty: 60 0RF fluticasone propionate [Flonase Allergy Relief] 50 mcg/actuation spray,suspension 1 spray intranasal BID PRN (Reason: allergies) Qty: 48 0RF Rx Instructions: administer into each nostril (DME) OneTouch Ultra Blue Test Strip strip See Dose Instructions .ROUTE .MEDSUPPLY Qty: 10 Rx Instructions: Test blood sugars 3 times a day Farxiga 10 mg tablet 10 mg PO QAM prazosin 2 mg capsule 2 mg PO HS atorvastatin 40 mg tablet 40 mg PO QAM Opcon-A 0.43809-6.315 % drops 1 drp ophthalmic (eye) QID PRN (Reason: Dry Eye(S)) (DME) blood-glucose meter [OneTouch Verio Flex meter] Misc See Rx Instructions .Route Qty: 1 0RF Rx Instructions: Check blood glucose 3x daily (DME) OneTouch Verio test strips Strip See Rx Instructions .Route Qty: 100 11RF Rx Instructions: Check blood glucose 3x daily (DME) lancets [Comfort EZ Lancets] 28 gauge misc See Rx Instructions .Route Qty: 100 11RF Rx Instructions: check blood glucose 3x daily bismuth subsalicylate [Pepto-Bismol] 1 applic PO DAILY PRN (Reason: Upset Stomach) cholecalciferol (vitamin D3) [Vitamin D3] 125 mcg (5,000 unit) Tablet 125 mcg PO DAILY albuterol sulfate [Ventolin HFA] 90 mcg/actuation Hfa Aerosol Inhaler 2 puff INHALATION Q6H PRN (Reason: Shortness Of Breath) famotidine 40 mg Tablet 40 mg PO HS pantoprazole 20 mg Tablet,Delayed Release (Dr/Ec) 20 mg PO QAM lurasidone [Latuda] 40 mg Tablet 40 mg PO HS Rx Instructions: must administer with food (at least 350 calories) aspirin 81 mg tablet,delayed release (DR/EC) 81 mg PO QAM diphenhydramine HCl [Benadryl] 25 mg Capsule 25 mg PO TID PRN (Reason: allergies and/or sleep) ticagrelor [Brilinta] 90 mg Tablet 90 mg PO BID lamotrigine [Lamictal] 200 mg tablet 200 mg PO BID dextromethorphan-guaifenesin [Mucinex DM] 60-1,200 mg Tablet Extended Release 12 Hr 1 tab PO Q12H Changed Xarelto 20 mg tablet 15 mg PO HS Qty: 0 0RF Rx Instructions: must administer with evening meal Held oxycodone-acetaminophen [Percocet] 5-325 mg tablet 1 - 2 tab PO UD PRN (Reason: pain) Hold Instructions: Provider's Order: Hold while taking oxycodone Patient Comments: states takes 2 tablet every 7 hours as needed for pain cephalexin 250 mg Tablet See Rx Instructions .ROUTE .COMPLEX Hold Instructions: Provider's Order Rx Instructions: Pt unsure of dose. Takes 3x/day. Discontinued lisinopril 10 mg tablet 10 mg PO QAM Discharge Orders: Discharge Order (Routine); Ordered 09/18/25 Ordered By: Cordelia Garcia Admission Data Admit Date/Time: 09/11/25 14:21 Attending Provider: Cordelia Turpin Admit Provider: Solo Rodriguez Primary Care Provider: Maci Arias Other Providers: Solo Rodriguez; Ridge Gaming; Sade Arrington,[facility] Other Interventions: Discharge Summary Assessment (RN) Last Done: 09/18/25 14:13 Hospital Stay Data Consultations 09/11/25 13:42 ED Decision to Admit Stat 09/11/25 16:16 Consult Vascular Surgery Routine Diagnostic Imagining Performed Chest X-Ray 12/09/25 13:47 SINGLE VIEW CHEST CLINICAL HISTORY: Anemia FINDINGS: An AP, portable, upright chest radiograph is compared to study dated 07/25/2025 and correlated with chest CT dated 08/05/2025. The heart is top normal for projection noting atherosclerotic calcification of the thoracic aorta. Emphysema and chronic interstitial thickening is similar to previous. There is mild bibasilar scarring/atelectasis. No airspace consolidation or pleural effusion is identified. No pneumothorax is seen. The skeletal structures are osteopenic. The bony thorax is grossly intact. IMPRESSION: Emphysematous change with no active disease in the chest. ACT 112: Negative or not required by law. Electronically signed by: Tommy Ferguson M.D. 09/11/2025 3:52 PM Pending Results Patient Have Any Pending Studies at Discharge: No Discharge Instructions Given to Patient (Per Discharging Provider) Farzaneh, You were admitted to the hospital due to severe anemia. You received 2 units of blood transfusions, 3 days worth of IV iron replacement, and you were started on oral iron supplementation, and your hemoglobin level has improved and remained stable since then. You also were found to have acute gout of your left foot. You were started on medication to treat this and will continue taking medication for this on discharge. You were evaluated by physical and Occupational Therapy who recommended rehab. You are being discharged to [facility] for rehab. Upon discharge from the hospital: * Take colchicine 0.6 mg twice daily through 09/20 to complete a 10-day total course. This is to treat your gout. * Take prednisone 30 mg daily x 5 additional days. This is to treat your gout. * Start allopurinol 300 mg daily once your gout flare resolves. * Continue the oral iron supplementation you are started on while in the hospital. * Your lisinopril was discontinued and amlodipine was started in its place. * Apply 25 mcg fentanyl patch once every 3 days. * Take oxycodone 10 mg every 4 hours as needed for severe pain. Do not drive or operate heavy machinery while taking oxycodone as it is a narcotic pain medication. * Follow-up with the vascular surgery team to reschedule your surgery. * Follow-up with your PCP in 1-2 weeks. Please return to the hospital if you experience any of the following: Chest pain, difficulty breathing, inability to tolerate oral intake, dizziness, passing out, new or worsening confusion, or any other symptoms concerning for you. It was a pleasure taking care of you while you were in the hospital! Total Time Total Time Spent Total Time Spent (In Minutes): Greater than 30 minutes spent completing this discharge process including direct patient care, medication reconciliation, documentation, review of labs and images, and coordination of care. Coding Level of Care Code 86909 INP/OBS DISCH >30 MIN Diagnoses Iron deficiency anemia D50.9 Peripheral vascular disease, unspecified I73.9 Acute gout of left foot, unspecified cause M10.9 Gout site: foot Gout etiology: unspecified cause Laterality: left Ambulatory dysfunction R26.2 Hyponatremia E87.1 Chronic pain syndrome G89.4 Chronic pain type: chronic pain syndrome"
== END 2025-09-18 15:19 | DRG 812 ==
LOC: SUATTDRO → ED 12:23 → 2W 14:21 → SUATTDRO 14:21 → 2W 15:35 → 2N 09-16 21:06